=== PATIENT | female | born 1945 | race Caucasian/White ===

== ENCOUNTER 2017-10-30 14:31 | Observation (INO) | payer MEDICARE, BC ==
[~2017-10-30 14:31] MED LIST: ISOVUE-370 76%-LOCM 1 ML ONE
[2017-10-30 14:57] LABS: #Basophils 0.1 thou/uL (0.0-0.2); #Eosinphils 0.2 thou/uL (0.0-0.7); #Lymphocytes 1.9 thou/uL (1.20-3.40); #Monocytes 0.8 thou/uL (0.11-0.59); #Neutrophils 4.3 thou/uL (1.40-6.50); %Basophils 1.3 % (0.0-1.0); %Eosinophils 2.8 % (0.0-10.0); %Lymphocytes 26.2 % (21.0-51.0); %Monocytes 10.4 % (0.0-10.0); %Neutrophils 59.2 % (42.0-75.0); Hemoglobin 15.6 g/dL (12.0-16.0); Mean Corpuscular HGB CONC 33.1 g/dL (32.0-36.0); Mean Corpuscular Hemoglobin 30.8 pg (27.0-31.0); Mean Corpuscular Volume 93.1 fl (81.0-99.0); Mean Platelet Volume 8.3 fL (7.4-10.4); Platelet Count 226 thou/uL (130-400); RBC Distribution Width 12.4 % (11.5-14.5); Red Blood Cell (RBC) Count 5.05 mill/uL (4.20-5.40); White Blood Cell (WBC) Count 7.2 thou/uL (4.8-10.8)
--- NOTE | 2017-10-30 15:14 | RAD ---
CHEST 1 VIEW: Date: 10/30/17 COMPARISON: 11/28/16. HISTORY: Epigastric pain. FINDINGS: Redemonstration of a coronary stent. Atherosclerosis of aorta noted. Normal cardiac silhouette. Lungs and pleural spaces are clear. No pneumothorax or osseous abnormalities. IMPRESSION: 1. Atherosclerosis. 2. No acute cardiopulmonary process. POS: [facility]
[2017-10-30 15:20] LABS: ALT (SGPT) 28 U/L (8-55); AST (SGOT) 26 U/L (5-34); Albumin 4.8 g/dL (3.4-4.8); Alkaline Phosphatase 79 U/L (40-150); Anion Gap 18 mmol/L (10-20); BUN (Urea Nitrogen) 14 mg/dL (9.8-20.1); Bilirubin, Total 0.5 mg/dL (0.2-1.2); CK (CPK) 165 U/L (29-168); Calc. Creatinine Clearance 0 mL/min (70-130); Calcium 10.6 mg/dL (7.8-10.44); Carbon Dioxide 22 mmol/L (23-31); Chloride 107 mmol/L (98-107); Estimated GFR-MDRD 70; Globulin 3.1 g/dL (2.4-3.5); Glucose 139 mg/dL (83-110); Potassium 4.7 mmol/L (3.5-5.1); Protein, Total 7.9 g/dL (6.0-8.3); Sodium 142 mmol/L (136-145)
[2017-10-30 15:24] LABS: Troponin I Less than 0.010 ng/mL (< 0.028)
[2017-10-30] MEDS ORDERED: Nitroglycerin 2% Ointment 1 INCH/1 GM Packet ONE (16:09)
[2017-10-30] MEDS ORDERED: Labetalol HCl 100 MG/20 ML VIAL ONE (16:09)
[2017-10-30] MEDS ORDERED: Nitroglycerin 0.4 MG TAB (25 Tab Bottle) ONE (16:09)
--- NOTE | 2017-10-30 17:34 | CT ---
CTA CHEST WITH IV CONTRAST AND 3D POSTPROCESSING CTA ABDOMEN WITH IV CONTRAST AND 3D POSTPROCESSING 10/30/17 HISTORY: Epigastric pain, coronary artery disease, atrial fibrillation. Concern for aortic dissection. FINDINGS: There are vascular calcifications without evidence of aneurysmal dilatation of the thoracoabdominal a latoya. No intimal flap is seen in the thoracic aorta to suggest aortic dissection. There is an intimal flap noted in the visualized portions of the left common carotid artery consistent with dissection. This suggests stenosis at the origin of the renal artery with good flow without significant stenosis at the origins of the celiac axis, SMA, and left renal artery. There is good flow noted in the RUDY as well. The pulmonary artery arterial vasculature is also well opacified without filling defects to suggest p ulmonary embolism. No pleural or pericardial effusions are seen. The visualized lung barbosa are clear . Multiple calcified gallstones are present. There are cysts in the right kidney. Nonobstructing calcul i is seen in the right kidney. No free air or free fluid is seen in the abdomen. There are degenerati ve changes in the thoracolumbar spine. Postop changes are noted in the lower lumbar spine. A normal a ppearing appendix is present. Findings are discussed over the telephone with Dr. Socorro Tan at 4:23 p.m. IMPRESSION: 1. No evidence of aortic dissection. 2. 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 3. Cholelithiasis. 4. Nonobstructing right renal calculi. 5. Right renal cysts. POS: [facility]
[2017-10-30] MEDS ORDERED: Ondansetron ODT 4 MG TAB SL PRN (18:57)
[2017-10-30] MEDS ORDERED: Sodium Chloride 0.9% 1,000 ML IV SCH (18:57)
[2017-10-30] MEDS ORDERED: Ondansetron HCl/PF 4 MG/2 ML Vial IVP PRN (18:57)
[2017-10-30 18:58] LABS: Troponin I 0.011 ng/mL (< 0.028)
[2017-10-30 19:06] VITALS: BMI 34.8
[2017-10-30] MEDS ORDERED: Mag-Al 1200 mg/1200 mg/30 ML UDCUP PO PRN (20:24)
[2017-10-30] MEDS ORDERED: cloNIDine 0.1 MG TAB PO PRN (20:25)
[2017-10-30] MEDS ORDERED: Acetaminophen 325 MG TAB PO PRN (20:26)
[2017-10-30] MEDS ORDERED: Ondansetron ODT 4 MG TAB PO PRN (20:27)
[2017-10-30] MEDS ORDERED: Ondansetron HCl/PF 4 MG/2 ML Vial SLOW IVP PRN (20:27)
[2017-10-30] MEDS ORDERED: Atorvastatin Calcium 40 MG TAB PO SCH (21:00)
[2017-10-30] MEDS ORDERED: Docusate 100 MG CAP PO SCH (21:00)
[2017-10-30] MEDS: Apixaban 5 MG TAB PO SCH (21:01)
[2017-10-31 07:54] VITALS: BP 105/52
[2017-10-31 07:56] VITALS: TEMP 98.4
[2017-10-31] MEDS ORDERED: metFORMIN 500 MG TAB PO SCH (08:00)
[2017-10-31] MEDS ORDERED: Spironolactone 25 MG TAB PO SCH (08:00)
[2017-10-31] MEDS ORDERED: Alogliptin 25 MG TAB PO SCH (09:00)
[2017-10-31] MEDS ORDERED: Docusate 100 MG CAP PO SCH (09:00)
[2017-10-31] MEDS ORDERED: Amlodipine 5 MG TAB PO SCH (09:00)
[2017-10-31] MEDS ORDERED: Fish Oil 1,000 MG CAP PO SCH (09:00)
[2017-10-31] MEDS: Apixaban 5 MG TAB PO SCH (09:02)
--- NOTE | 2017-10-31 11:38 | HP ---
DATE OF ADMISSION: 10/30/2017 REASON FOR ADMISSION/CHIEF COMPLAINT: Chest pain. HISTORY OF PRESENT ILLNESS: This is a 72-year-old female, patient of Dr. Dutch Hess's, w ho came to the emergency room due to several days of relatively constant retrosternal burning-type pa in. She had tried Mylanta and Tums and had no relief. Stated the pain did not radiate. There is no nausea, there is no diaphoresis, and no shortness of breath. It was not made worse with exertion, w as not made worse or better with food or positioning. She had a cardiac catheterization done 1 year ago, which showed that her 3 stents were widely patent in her LAD with mild disease distally. Dr. Ligia khan sees her from Cardiology and he has an appointment already scheduled to see her later this month . Dr. Hess then saw her 2 weeks ago and started her on amlodipine 5 mg daily due to blood pressure issues. Since then she has noted slight edema to her ankles and feet. The pain in the ER was sligh tly improved. PAST MEDICAL HISTORY: Atherosclerotic coronary vascular disease, status post stent placements; hyper tension; hyperlipidemia; diabetes; degenerative joint disease; degenerative disk disease; spinal sten osis; and a history of paroxysmal atrial fibrillation, which was not helped by Multaq. PAST SURGICAL HISTORY: Stent placement, lumbar back surgery, left hip replacement, and bilateral tub al ligation. 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 CURRENT MEDICATIONS: She is on Eliquis 5 mg twice a day, aspirin 81 mg a day, Avapro 300 mg a day, a mlodipine 5 mg a day, Aldactone 25 mg a day, Lipitor 40 mg a day, Protonix 40 mg a day, metformin 100 0 mg twice a day, alogliptin 25 mg a day, and she takes fish oil and CoQ10 and Tums and Maalox as nee ded. FAMILY HISTORY: Father had lung cancer, diabetes, hypertension, and spinal stenosis issues. Mom had diabetes and cardiovascular disease. SOCIAL HISTORY: She is a retired nurse. She is a . No toxic habits. Lives at home alone. REVIEW OF SYSTEMS: Denies any fever or chills or constitutional symptoms. No headache or visual danelle nges, no troubles chewing or swallowing. No shortness of breath, no cough, no hemoptysis. Denies an y abdominal discomfort. No excess gas. Denies any changes to bowel habits, no hematochezia or melen a or bright red blood per rectum. Denies any changes to her regular genitourinary habits. No dysuri a, no hematuria. Denies any paresis or paresthesias. Denies any suicidal or homicidal ideations. D enies any auditory or visual hallucinations. PHYSICAL EXAMINATION: GENERAL: She is sitting up comfortable in the bed, alert and oriented x4, in no acute distress. VITAL SIGNS: Temperature is 98.4 with a pulse of 49, respirations 16, BP is 105/52, satting 95% on r oom air. HEENT EXAM: Shows normocephalic and atraumatic cranium. Pupils equal, round, reactive to light and accommodation. Extraocular movements are intact. Nonicteric sclerae are noted. NECK: Supple, no JVD, no bruits. HEART: Shows S1, S2, with no rubs, murmurs, or gallops. Regular rate and rhythm at this time. No c hest wall tenderness to palpation. LUNGS: Clear to auscultation bilaterally with no rales, rhonchi, or wheezes. ABDOMEN: Soft, nontender, nondistended. No hepatosplenomegaly. Bowel sounds are positive throughou t. GENITOURINARY: Exam is deferred. EXTREMITIES: Good palpable pulses in all 4 extremities. There is slight 1+ edema to bilateral feet and ankles. NEUROLOGIC: She is grossly intact. Cranial nerves II-XII are equal and symmetrical. Motor is 4/5 i n all 4 extremities. She is moving all 4 extremities. Sensory is without diminishment. Good sensat ion in all areas. LABORATORY AND X-RAY FINDINGS: Shows a white count normal at 7.2, H and H is 15.6 and 47 respectivel y, platelets of 226,000. Sodium 142, potassium 4.7, chloride 107, CO2 is 22, BUN is 14, creatinine 0 .8 with a glucose at 139. Her AST is 26 and ALT is 28, creatine kinase 165, CK-MB is 4.0, troponin f irst was undetectable and then 0.01 and then last one was 0.02. EKG showed no acute changes to past EKGs. No ST elevations or depressions. CT scan was done in the emergency room for dissection protoc ol, showed no dissection, showed a questionable intimal change to the left common carotid. ASSESSMENT AND PLAN: Hypertensive urgency with a known coronary artery disease with no acute coronar y symptoms. Patient is placed in the hospital overnight for observation.
--- NOTE | 2017-10-31 12:14 | DIS ---
DATE OF ADMISSION: 10/30/2017 DATE OF DISCHARGE: 10/31/2017 CONSULTATIONS: None. PROCEDURES: None. HOSPITAL COURSE: This is a 72-year-old female patient of Dr. Dutch Hess's who came in [facility] hypertensive urgency. She had some retrosternal pain for several days constantly that was not mad e worse or better by any of her interventions or whether be food, position, or medicine. Last night, patient was admitted and given a dose of Imdur. Her hypertension was elevated above into the upper 170s and was not necessarily improved with the interventions in the ER. Imdur was given and this mor day of discharge, her pressure within 2 hours of taking the medicine was down to 120 and this mo rning is 105/52. The patient is asymptomatic at this point with pressure being normalized. Her labs were essentially all negative with minimal changes in troponin, but her EKGs remained stable. Plan is to discharge to home to continue the Imdur as a daily medication. We will decrease the Norvasc to 2.5 due to the pedal edema despite her use of Avapro and we will have her follow up with Dr. Hess in this next week and also maintain that appointment that she has with her brake drum lathe operator, Dr. Yaneli levine this month.
--- NOTE | 2017-10-31 15:37 | EKG ---
Test Reason : Blood Pressure : / mmHG Vent. Rate : 068 BPM Atrial Rate : 068 BPM P-R Int : 156 ms QRS Dur : 070 ms QT Int : 394 ms P-R-T Axes : 062 -27 -27 degrees QTc Int : 418 ms Sinus rhythm with Premature atrial complexes in a pattern of bigeminy Inferior infarct , age undetermined Abnormal ECG Confirmed by SHIRLEY LEON, JANET Aquino ([id number]), editorial director JACINDA HAMEED ([id number]) on 10/31/2017 3:36:54 PM Referred By: Confirmed By:JANET WATSON MD
[2017-10-31] MEDS ORDERED: Metamucil PACK PO SCH (17:00)
[2017-10-31] MEDS ORDERED: Aspirin 81 mg Enteric Coated Tablet PO SCH (21:00)
== END 2017-10-31 11:33 | disposition home or self-care (01) ==
LOC: ERS 14:31 → 2SW 17:43
PROVIDERS: ADMIT Family Medicine; ATTEND Family Medicine
DX: I16.0 Hypertensive urgency (principal); R07.2 Precordial pain; I25.10 Atherosclerotic heart disease of native coronary artery without angina pectoris; I10 Essential (primary) hypertension; E78.5 Hyperlipidemia, unspecified; E11.9 Type 2 diabetes mellitus without complications; M19.90 Unspecified osteoarthritis, unspecified site; I48.0 Paroxysmal atrial fibrillation; L53.9 Erythematous condition, unspecified; Z79.01 Long term (current) use of anticoagulants; Z79.82 Long term (current) use of aspirin; Z79.84 Long term (current) use of oral hypoglycemic drugs; Z79.899 Other long term (current) drug therapy; Z88.2 Allergy status to sulfonamides; Z88.1 Allergy status to other antibiotic agents; Z88.8 Allergy status to other drugs, medicaments and biological substances; Z88.7 Allergy status to serum and vaccine; Z98.51 Tubal ligation status; Z96.642 Presence of left artificial hip joint; Z98.890 Other specified postprocedural states
CPT/HCPCS: 71045; 71275; 80053; 82550; 82553; 82962 ×2; 83880; 84484 ×2; 85025; 93005; 99285; G0378; 36415; 36416; A4216

== ENCOUNTER 2017-11-18 20:05 | Emergency (ER) | payer MEDICARE, BC ==
[2017-11-19 01:12] LABS: #Basophils 0.1 thou/uL (0.0-0.2); #Eosinphils 0.1 thou/uL (0.0-0.7); #Lymphocytes 2.1 thou/uL (1.20-3.40); #Monocytes 0.8 thou/uL (0.11-0.59); #Neutrophils 5.7 thou/uL (1.40-6.50); %Basophils 0.9 % (0.0-1.0); %Lymphocytes 23.9 % (21.0-51.0); %Monocytes 9.3 % (0.0-10.0); %Neutrophils 64.9 % (42.0-75.0); Hemoglobin 15.1 g/dL (12.0-16.0); Mean Corpuscular Hemoglobin 30.9 pg (27.0-31.0); Mean Corpuscular Volume 90.9 fl (81.0-99.0); Mean Platelet Volume 8.1 fL (7.4-10.4); Platelet Count 217 thou/uL (130-400); RBC Distribution Width 12.4 % (11.5-14.5); Red Blood Cell (RBC) Count 4.89 mill/uL (4.20-5.40); White Blood Cell (WBC) Count 8.7 thou/uL (4.8-10.8)
[2017-11-19 01:17] LABS: Bilirubin Negative (Negative); Blood, Urine Negative (Negative); Clarity CLEAR (Clear); Glucose, Urine (Dipstick) Negative (Negative); Leukocyte Trace (Negative); Nitrite Negative (Negative); Protein, Urine (Dipstick) Negative (Neg-Trace); Specific Gravity, Urine 1.015 (1.002-1.036)
[2017-11-19 01:20] LABS: Bacteria/HPF None Seen HPF (None Seen); Hyaline Casts/LPF 0-3 HYALINE CAST LPF (0-3 Hyaline); Pathc Cast-AUWi Flag 0.43 (0-2.49); RBC/HPF 0-3 HPF (0-3); Squamous Epithelial 0-3 HPF (0-3)
[2017-11-19] MEDS ORDERED: cloNIDine 0.1 MG TAB ONE (01:29)
[2017-11-19 01:37] LABS: ALT (SGPT) 29 U/L (8-55); AST (SGOT) 25 U/L (5-34); Albumin 4.8 g/dL (3.4-4.8); Alkaline Phosphatase 77 U/L (40-150); Anion Gap 13 mmol/L (10-20); BUN (Urea Nitrogen) 17 mg/dL (9.8-20.1); Bilirubin, Total 0.5 mg/dL (0.2-1.2); Calc. Creatinine Clearance 0 mL/min (70-130); Calcium 10.6 mg/dL (7.8-10.44); Carbon Dioxide 27 mmol/L (23-31); Chloride 103 mmol/L (98-107); Estimated GFR-MDRD 69; Globulin 2.9 g/dL (2.4-3.5); Glucose 168 mg/dL (83-110); Potassium 3.7 mmol/L (3.5-5.1); Protein, Total 7.7 g/dL (6.0-8.3); Sodium 139 mmol/L (136-145)
--- NOTE | 2017-11-19 08:10 | CT ---
PRELIMINARY REPORT/[facility]/EMERGENCY AFTER HOURS PROCEDURE: EXAM: CT Head Without Intravenous Contrast CLINICAL HISTORY: 72 years old, female; Injury or trauma; Fall; Initial encounter; Concussion / head injury; Consciousn ess not specified; Injury date: 11/19/2017; Injury details: 72 yo wf pmh a-fib S/P ablation and on chr onic anticoagulant. Presents following fall from standing during which she struck her head against th e wall and landed on her right side. Denies loc. Denies recurrent falls. Denies cp, SOB, numbness, or weakness. TECHNIQUE: Axial computed tomography images of the head/brain without intravenous contrast. All CT scans at this facility use one or more dose reduction techniques, viz.: automated exposure control; ma/kV adjustme nt per patient size (including targeted exams where dose is matched to indication; i.e. head); or ite rative reconstruction technique. COMPARISON: No relevant prior studies available. FINDINGS: Brain: Mild volume loss No hemorrhage. Mild white matter disease. No edema. Ventricles: Unremarkable. No ventriculomegaly. Bones/joints: Unremarkable. No acute fracture. Soft tissues: Unremarkable. Sinuses: Unremarkable as visualized. No acute sinusitis. Mastoid air cells: Unremarkable as visualized. No mastoid effusion. IMPRESSION: No intracranial hemorrhage.Please see discussion above. Thank you for allowing us to participate in the care of your patient. Dictated and Authenticated by: Raji Lees MD 11/19/2017 1:32 AM Central Time ([place] & [place]) FINAL REPORT EMERGENCY/AFTER HOURS EXAMINATION CT HEAD WITHOUT IV CONTRAST: 11/19/2017 HISTORY: Injury after fall. Patient with atrial fibrillation and on a chronic anticoagulant. IMPRESSION: 1. No acute intracranial abnormality is demonstrated. 2. Mild chronic small vessel ischemic changes, not progressed when compared to study on 11/28/2016. Findings are in agreement with the preliminary report by [facility]. POS: [facility]
--- NOTE | 2017-11-19 08:12 | RAD ---
AP AND OBLIQUE VIEWS RIGHT RIBS: HISTORY: Right rib trauma and pain. TECHNIQUE: AP and oblique views of the right ribs are obtained. FINDINGS: No definite evidence of right rib fractures, subluxations, or bony lesions seen. No evidence of hemo thorax or pneumothorax is seen. IMPRESSION: Unremarkable AP and oblique views of the right ribs. POS: [facility]
--- NOTE | 2017-11-19 08:16 | RAD ---
AP VIEW CHEST: 11/19/2017 HISTORY: Fall from standing. COMPARISON: 10/30/2017 FINDINGS: AP view chest demonstrates the lungs to be well aerated. No evidence of active intrathoracic disease is seen. No evidence of effusion, pneumonia, or pneumothorax is seen. IMPRESSION: Unremarkable AP view chest. POS: [facility]
--- NOTE | 2017-11-19 08:22 | CT ---
PRELIMINARY REPORT/[facility]/EMERGENCY AFTER HOURS PROCEDURE: EXAM: CT Cervical Spine Without Intravenous Contrast CLINICAL HISTORY: 72 years old, female; Injury or trauma; Fall; Initial encounter; Concussion /head injury; Injury date : 11/19/2017; Injury details: 72 yo wf pmh a-fib S/P ablation and on chronic anticoagulant. Presents following fall from standing during which she struck her head against the wall and landed on her righ t side. Denies loc. Denies recurrent falls. Denies cp, SOB, numbness, or weakness. TECHNIQUE: Axial computed tomography images of the cervical spine without intravenous contrast. All CT scans at this facility use one or more dose reduction techniques, viz.: automated exposure control; ma/kV adjustment per patient size (including targeted exams where dose is matched to indication; i.e. head) ; or iterative reconstruction technique. COMPARISON: No relevant prior studies available. FINDINGS: Vertebrae: Loss of vertebral body height, presumed degenerative No acute fracture. Discs/spinal canal/neural foramina: No acute findings. See level central canal and foraminal stenosis most pronounced at C4-C5 and C5-C6 Soft tissues: Unremarkable. Lung apices: Unremarkable as visualized. IMPRESSION: No definite acute cervical fracture Thank you for allowing us to participate in the care of your patient. Dictated and Authenticated by: Raji Lees MD 11/19/2017 1:57 AM Central Time ([place] & [place]) FINAL REPORT EMERGENCY AFTER HOURS NONCONTRAST CT CERVICAL SPINE: Date: 11/19/17 HISTORY: Injury after fall from standing position. Right rib pain. Patient on anticoagulation secondary to atr ial fibrillation. TECHNIQUE: Contiguous axial CT images are obtained through the cervical spine to the T2-3 level. Sagittal and co giancarlo reformatted images are provided. IMPRESSION: 1. Multilevel degenerative changes seen throughout the cervical spine with narrowing of the interver tebral disc spaces at all levels with associated posterior osteophyte formation and disc osteophyte c omplexes, which does encroach on the central spinal canal. Findings are greatest at the C4-5 and C5-6 levels where there is severe left-sided neural foraminal narrowing at these levels. There is also mo derate to severe left-sided neural foraminal narrowing at C6-7 level. 2. Prevertebral soft tissues are within normal limits. 3. Vascular calcifications in the carotid arteries. Findings are in agreement with the preliminary report by [facility]. POS: [facility]
== END 2017-11-19 02:55 | disposition home or self-care (01) ==
LOC: ERS 20:05
DX: S20.211A Contusion of right front wall of thorax, initial encounter (principal); I25.10 Atherosclerotic heart disease of native coronary artery without angina pectoris; I48.91 Unspecified atrial fibrillation; E11.9 Type 2 diabetes mellitus without complications; I10 Essential (primary) hypertension; I25.2 Old myocardial infarction; E78.5 Hyperlipidemia, unspecified; W19.XXXA Unspecified fall, initial encounter
CPT/HCPCS: 36415; 70450; 71045; 72125; 80053; 81003; 81015; 85025; 93005

== ENCOUNTER 2018-01-15 18:49 | Inpatient (IN) | payer MEDICARE, BC ==
[2018-01-15 19:23] LABS: #Eosinphils 0.1 thou/uL (0.0-0.7); #Lymphocytes 0.6 thou/uL (1.20-3.40); #Monocytes 0.4 thou/uL (0.11-0.59); #Neutrophils 5.9 thou/uL (1.40-6.50); %Basophils 0.6 % (0.0-1.0); %Eosinophils 1.7 % (0.0-10.0); %Lymphocytes 8.9 % (21.0-51.0); %Monocytes 5.9 % (0.0-10.0); Hemoglobin 15.7 g/dL (12.0-16.0); Mean Corpuscular HGB CONC 34.4 g/dL (32.0-36.0); Mean Corpuscular Hemoglobin 31.6 pg (27.0-31.0); Mean Corpuscular Volume 91.9 fl (81.0-99.0); Mean Platelet Volume 7.9 fL (7.4-10.4); Platelet Count 190 thou/uL (130-400); RBC Distribution Width 12.8 % (11.5-14.5); Red Blood Cell (RBC) Count 4.96 mill/uL (4.20-5.40); White Blood Cell (WBC) Count 7.1 thou/uL (4.8-10.8)
[2018-01-15 19:40] LABS: ALT (SGPT) 27 U/L (8-55); AST (SGOT) 24 U/L (5-34); Albumin 4.6 g/dL (3.4-4.8); Alkaline Phosphatase 69 U/L (40-150); Anion Gap 11 mmol/L (10-20); BUN (Urea Nitrogen) 21 mg/dL (9.8-20.1); Bilirubin, Total 0.9 mg/dL (0.2-1.2); Calc. Creatinine Clearance 0 mL/min (70-130); Carbon Dioxide 28 mmol/L (23-31); Chloride 102 mmol/L (98-107); Estimated GFR-MDRD 67; Globulin 2.9 g/dL (2.4-3.5); Glucose 139 mg/dL (83-110); Lipase 381 U/L (8-78); Magnesium 1.9 mg/dL (1.6-2.6); Potassium 3.9 mmol/L (3.5-5.1); Protein, Total 7.5 g/dL (6.0-8.3); Sodium 137 mmol/L (136-145)
[2018-01-15 19:44] LABS: CKMB 4.5 ng/mL (0-6.6); Troponin I Less than 0.010 ng/mL (< 0.028)
[2018-01-15 20:07] LABS: INR-International Normal Ratio 1.1; Prothrombin Time 14.1 SEC (12.0-14.7)
[2018-01-15 20:31] LABS: Bilirubin Negative (Negative); Blood, Urine Negative (Negative); Clarity CLEAR (Clear); Glucose, Urine (Dipstick) Negative (Negative); Leukocyte Trace (Negative); Nitrite Negative (Negative); Protein, Urine (Dipstick) Negative (Neg-Trace); Specific Gravity, Urine 1.011 (1.002-1.036); Urobilinogen 0.2 mg/dL (0.2-1.0); pH, Urine 7.5 (5.0-9.0)
[2018-01-15 20:33] LABS: Bacteria/HPF None Seen HPF (None Seen); Hyaline Casts/LPF 0-3 HYALINE CAST LPF (0-3 Hyaline); Pathc Cast-AUWi Flag 0.14 (0-2.49); RBC/HPF 0-3 HPF (0-3); Squamous Epithelial 0-3 HPF (0-3); WBC/HPF 0-3 HPF (0-3)
--- NOTE | 2018-01-15 20:36 | RAD ---
CHEST ONE VIEW: 01/15/18 HISTORY: Chest pain. COMPARISON: 11/19/17 study. Heart size is within normal limits. Coronary stent is noted. There are atherosclerotic changes of the aorta. The lungs are clear of any infiltrative process. IMPRESSION: No active intrathoracic disease. POS: [facility]
--- NOTE | 2018-01-15 21:31 | CT ---
CT BRAIN 01/15/18 HISTORY: Altered mental status. Noncontrast enhanced CT images of the brain is obtained. Comparison made to previous exam from 11/19/17. 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 No evidence of intracranial masses, hemorrhages, strokes or contusions seen. Ventricles are of normal size. IMPRESSION: Unremarkable CT brain. POS: [facility]
[2018-01-15 23:55] VITALS: BMI 32.4
--- NOTE | 2018-01-16 10:30 | ULT ---
CAROTID ULTRASOUND: Date: 01/16/18 HISTORY: TIA. FINDINGS: Real-time color Doppler evaluation of the right and left carotid systems was performed. On the right side, there is some minimal plaque formation at the origin of the internal carotid arter y and external carotid artery. On the left side, there are findings that are suspicious for an intima l dissection of the common carotid artery which extends for several centimeters and would be better a ssessed with CT angio of neck. On the right side, peak systolic velocities of the common carotid were 47 cm/second. Internal carotid velocities were 36 cm/second and external carotid velocities were 71 cm/second. On the left side, peak systolic velocities of the common carotid were 68 cm/second. Internal carotid velocities were 76 cm/second and external carotid velocities were 54 cm/second. Vertebral flow was antegrade bilaterally. IMPRESSION: 1. No evidence of hemodynamically significant stenosis of either internal carotid artery. 2. Findings are suspicious for intimal dissection of the left common carotid artery. This would be b shara investigated with CT angio of the neck. These findings were telephoned to patient's nurse, Jasmin, who will relay it to the referring physic luisito. CODE CR. POS: [facility]
[2018-01-16] MEDS ORDERED: Potassium Chloride 8 MEQ TAB PO PRN (11:24)
[2018-01-16] MEDS ORDERED: ISOVUE-370 76%-LOCM 1 ML ONE (12:14)
--- NOTE | 2018-01-16 12:51 | HP ---
CHIEF COMPLAINT: Dizziness with nausea. HISTORY OF PRESENT ILLNESS: This is a 72-year-old female patient of Dr. Dutch Hess's wit h known coronary artery disease, who was last admitted in 10/2017 for hypertensive urgency. She was at home, walking outside using her rolling walker when she suddenly became very dizzy and nauseated. She sat down on her seat of the walker. She had not been exerting herself. She started this to fee l terrible and went inside and sat down and after at least 30 minutes to almost an hour, she said she started to feel better. She did not notice any changes in her vision or headache. She did not lose consciousness. So, she did have some strange feelings, could not necessarily describe them. She di d not describe them as a pain. She did not describe them as needles or electrical nature, just a str iraida feeling. She said after the initial nausea and dizziness subsided a little bit of just come and go unpredictably. PAST MEDICAL HISTORY: Positive for atherosclerotic coronary vascular disease. She has 3 stents in h er LAD, hypertension, hyperlipidemia, diabetes, degenerative disk disease, degenerative joint disease , spinal stenosis, and history of paroxysmal atrial fibrillation. PAST SURGICAL HISTORY: Stent placements in coronary arteries, lumbar disk surgery. She had a left t otal hip replacement, bilateral tubal ligation remotely. ALLERGIES: SULFA, LAMISIL, also intolerant to NIACIN. MEDICATIONS: Eliquis 5 mg b.i.d., aspirin 80 mg a day, metformin 1000 mg b.i.d., Januvia 100 mg luis y, Norvasc 2.5 mg daily, Avapro 300 mg daily, Aldactone 25 mg daily, Imdur ER 30 mg daily, Lipitor 40 mg daily, and Prevacid 30 mg daily, along with some nonmedicinal supplements, Krill oil, and probiot ic. FAMILY HISTORY: Father had lung cancer, diabetes, hypertension, spinal stenosis. Mother had coronar y artery disease and diabetes. SOCIAL HISTORY: She is a retired nurse. She is a , has children that live locally. She has no toxic habits. Lives at home alone. REVIEW OF SYSTEMS: As per HPI. She denies any fever or chills, diarrhea or constipation. She had n ausea, was not necessarily associated with head movement or eye movement. She denies any headache or visual changes. No ophthalmoplegia, denies any trouble chewing or swallowing. Denies any chest colin n or shortness of breath or cough. Denies any emesis. Denies any abdominal pain, denies any changes in bowel or bladder habits. Denies any dysuria or hematuria. No uncoordinated muscle movements, no paresis or paresthesias. Denies any suicidal or homicidal ideations. No auditory or visual halluci nations. PHYSICAL EXAMINATION: GENERAL: She is currently sitting up and comfortable in bed. She is afebrile. VITAL SIGNS: Temperature 98.3, pulse 60, respiration is 12, BP is 151/83, and sat 96% on room air. HEENT: Normocephalic and atraumatic cranium. She does wear glasses for myopia. Her pupils are equa l, round, and reactive to light and accommodation. Extraocular movements are intact. Mucous membran es are moist. NECK: Supple, no JVD, no bruits, no lymphadenopathy, no thyromegaly. HEART: S1 and S2, with no rubs, murmurs, or gallops. LUNGS: Clear to auscultation bilaterally with no rales, rhonchi, or wheezes. ABDOMEN: Soft, nontender, nondistended, no palpable masses, no hepatosplenomegaly. She is a slightl y obese. EXTREMITIES: Show good palpable pulses x4. No cyanosis, clubbing, or edema. NEUROLOGIC: She is alert and oriented x4. Cranial nerves II-XII are equal and symmetrical. There i s no motor or sensory deficits noted. No coordination impairment noted. No tremor. LABORATORY AND X-RAY FINDINGS: White count normal at 7.1, H&H 15 and 45 respectively with 190,000 [address] atelets. Chemistry shows sodium 137, potassium 3.9, chloride 102, bicarbonate 28, BUN is 21, creatin ine 0.83, glucose of 139. Her troponin is undetectable. Beta natriuretic peptide is 44. Ultrasound Doppler done per the TIA protocol showed a left internal carotid intimal flap so she will undergo fu rther evaluation there. ASSESSMENT: Transient ischemic attack possibly versus significant vertigo with the finding on the Do ppler. She will get a dissection protocol, CTA of the carotid system. Of note, she has had an intim al flap in the past noted, so this could be chronic. We will need to see whether her symptom is havi ng change and also we have, this has already been discussed with Dr. Johnson, CV Surgery.
--- NOTE | 2018-01-16 14:04 | CT ---
CT ANGIOGRAM OF THE NECK WITH CONTRAST: Date: 01/16/18 Time: 1132 hours HISTORY: Left carotid artery dissection suspected on carotid Doppler ultrasound today. Dr. Franco discussed the findings by telephone with neurologist, Dr. Ariane Simmons, at 1148 hours on . TECHNIQUE: Following IV contrast bolus injection, arterial bolus chasing technique scan was performed from aorto pulmonic window to lower orbit level. Coronal and sagittal 3D MIP reconstructions. The intracranial contents were not included on the scan; the CT angiogram of the head was ordered lat e, and the surgical scrub technologist did not see that particular order when he or she performed the scans. FINDINGS: There is displaced intimal flap of the left common carotid artery beginning approximately 0.4 cm dist al to its origin, propagating superiorly to the distal common carotid artery, up to a distance of maggi roximately 1.5 cm proximal to the origin of the left internal carotid artery. The false lumen is loca chago posterior to the true lumen. Located a distance of approximately 1.5 - 2 cm distal to its origin, there is a small focal filling defect in the false lumen consistent with clot. The common carotid ar odilon dissection was present on a previous CT angiogram of the chest and abdomen for aortic dissection protocol, and was mentioned in that report. The triangular filling defect suggestive of clot was als o present on that study. There is atherosclerotic calcification of the proximal left internal carotid artery. Dissection does not propagate into the left internal carotid artery. There is no high grade stenosis of the bilateral internal carotid arteries, up to the level of the cavernous carotids. Righ t vertebral artery is slightly dominant No high grade stenosis or dissection identified involving galdino ateral cervical and intracranial portions of the vertebral arteries, or of the basilar artery. Basila r tip and posterior cerebral arteries are not included on the scan. No high grade stenosis of the bra chiocephalic, right subclavian, or left subclavian arteries. IMPRESSION: 1. Dissection of the left common carotid artery. 2. Possible small focal thrombus in the proximal portion of the false lumen. 3. The left common carotid artery dissection was identified on CT angiogram of the aorta on 10/30/17 . 4. The dissection does not propagate into the internal carotid artery. POS: [facility]
--- NOTE | 2018-01-16 15:02 | CON ---
DATE OF CONSULTATION: 01/16/2018 CHIEF COMPLAINT: Dizziness. HISTORY OF PRESENT ILLNESS: The patient reports to me that she has had some issues with her aortic d issection and other medical problems. She has known coronary artery disease. She was admitted [facility]. She was walking with a walker and her daughter was helping her with gardening. She became very dizzy and nauseous, and she sat down and she did not feel well and after about an h our, she started to feel better, but her daughter brought her in because she was not herself, and the re was no history of any speech problems or loss of consciousness, seizures or weakness. PAST MEDICAL HISTORY: She has coronary artery disease with 3 stents in the left anterior descending artery. She also has a history of hypertension, diabetes, back problems with degenerative arthritis, spinal stenosis, and paroxysmal atrial fibrillation. PAST SURGICAL HISTORY: Stent placement, coronary artery disease, lumbar disk surgery. She also has known aortic dissection, left hip replacement and bilateral tubal ligation. ALLERGIES: She is allergic to SULFA, LAMISIL, and NIACIN. HOME MEDICATIONS: Include Eliquis and aspirin for stroke prophylaxis. She is also on metformin, Nor vasc, and other agents. FAMILY HISTORY: The patient reports both her parents had hypertension, diabetes, and heart disease a nd father also had stroke. 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 Lives alone at home. REVIEW OF SYSTEMS: Pulmonary: Normal. Cardiac: History of stents. Gastrointestinal: Nausea and feeling of vomiting. Neurological: Positive now for headache. She did have dizziness that lasted a pproximately an hour. Endocrine: Positive for diabetes. Dermatologic: Normal. LABORATORY DATA: So far, white count 7.1, hemoglobin 15.7, hematocrit 45.6, platelets 190. Chemistr y: Sodium 137, potassium 3.9, chloride 102, bicarbonate 28, BUN 21, creatinine 0.83. Serum lipase 3 81 and her reports so far, I have spoken to the radiologist about her CT angiography of the neck. At this time, the neck angio is normal. There is no vertebral artery issues, but she does have a stabl e common carotid artery dissection. CT of the head is negative. At this time, we could not get the CT angio of the head due to excessive contrast that might have to be used since she has already compl eted the contrast scan. PHYSICAL EXAMINATION: VITAL SIGNS: Blood pressure 152/87, pulse is 73, temperature 98.8, respiratory rate 14. GENERAL APPEARANCE: Well-built, well-nourished lady, who appears comfortable. CHEST: Clear vesicular breathing. CARDIOVASCULAR: S1, S2 heard, no murmurs. Carotids are clear. ABDOMEN: Soft, nontender, no organomegaly noted. MOTOR: Bulk is normal. Tone is normal. Strength is 5/5 in upper and lower extremities. Muscle sierra ups tested are iliopsoas, hamstrings, quadriceps, ankle dorsiflexion, plantar flexion, deltoid, bicep s, triceps, wrist extension/flexion, and finger extension and flexion. Deep tendon reflexes were abs ent throughout. SENSORY: Decreased sensation to vibration touch, temperature and proprioception in both lower extrem ities. Normal sensation in upper extremities. CEREBELLAR: Normal finger to nose, heel to farias. GAIT: She is limping and she has orthopedic component to her gait. ASSESSMENT AND PLAN: The patient is a 72-year-old lady with multiple vascular risk factors including hypertension, diabetes, coronary artery disease, preexisting aortic dissection and dissection of her common carotid artery, which apparently is stable and unchanged from her most recent workup in October . She comes in with history of dizziness, which lasted approximately for an hour and I am not sure w hat her elevation of lipase is from. Her physical examination shows slightly obese lady with normal neurological examination. Except for her gait where she has orthopedic component of gait and is limp ing. Her current diagnosis is most consistent with transient ischemic attack. RECOMMENDATIONS: For now, she can continue her present medications. I requested a CT angio of the h ead to make sure we complete looking at her vasculature and this can be done tomorrow since she alrea dy received IV contrast today. If that study is negative and normal, she can go home. She would lik e to go home and she can follow up with her neurologist, Dr. Lee.
[2018-01-16] MEDS ORDERED: Metamucil PACK PO SCH (17:00)
[2018-01-16] MEDS: metFORMIN 500 MG TAB PO SCH (17:15)
[2018-01-16] MEDS: Apixaban 5 MG TAB PO SCH (20:28)
[2018-01-16] MEDS ORDERED: Docusate 100 MG CAP PO SCH (21:00)
[2018-01-16] MEDS ORDERED: Atorvastatin Calcium 40 MG TAB PO SCH (21:00)
--- NOTE | 2018-01-16 23:08 | CON ---
DATE OF CONSULTATION: 01/16/2018 HISTORY OF PRESENT ILLNESS: Ms. Kenney is a 72-year-old woman who was in the hospital in October w ith hypertension. She was found at that time on CT angiogram to have a common carotid artery dissect ion. CT angiogram was performed of her aorta and did not extend up higher than the origin of her com mon carotid where the common carotid dissection was seen. She has history of atrial fibrillation, patterson s been managed on 81 mg of aspirin and Eliquis. She was brought to the hospital today by her daughter when she became dizzy and nauseous. She sat do wn, did not feel well and after an hour, her daughter brought her in because she said she was not her self. She had no loss of function of either arm or leg. She had no facial drooping. She had no spe ech difficulty. She had no visual disturbance. PAST MEDICAL HISTORY: 1. Coronary artery disease/status post stenting. 2. Hypertension. 3. Diabetes. 4. Chronic left common carotid artery dissection. 5. Spinal stenosis. 6. Paroxysmal atrial fibrillation. PAST SURGICAL HISTORY: 1. Lumbar disk surgery. 2. Left hip replacement. 3. BTL. ALLERGIES: SULFA, LAMISIL, and NIACIN. HOME MEDICATIONS: Noted. 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 PHYSICAL EXAMINATION: VITAL SIGNS: Heart rate is 70, blood pressure is 150/87. NECK: Supple. She has no bruits. CHEST: Clear bilaterally. HEART: Rhythm is regular. ABDOMEN: Soft and nontender. NEUROLOGIC: Deferred to Dr. Simmons. CT angiogram of her carotids has been performed, which shows a dissection beginning at the origin of the left common carotid artery and extending up to the bulb. Internal carotid artery is unaffected. There is no flow limiting component. ASSESSMENT AND PLAN: Chronic left common carotid artery dissection - medical management should be co ntinued. Her aspirin has been increased to 325 mg every day, and she will continue her Eliquis as pr eviously ordered for atrial fibrillation.
[2018-01-17 05:05] VITALS: TEMP 99.3
[2018-01-17] MEDS ORDERED: Spironolactone 25 MG TAB PO SCH (08:00)
[2018-01-17] MEDS: Apixaban 5 MG TAB PO SCH (08:13)
[2018-01-17] MEDS: metFORMIN 500 MG TAB PO SCH (08:13)
[2018-01-17 08:25] VITALS: BP 146/86
[2018-01-17] MEDS ORDERED: EPA PO SCH (09:00)
[2018-01-17] MEDS ORDERED: AST PO SCH (09:00)
[2018-01-17] MEDS ORDERED: Docusate 100 MG CAP PO SCH (09:00)
[2018-01-17] MEDS ORDERED: Aspirin 325 mg Enteric Coated Tablet PO SCH (09:00)
[2018-01-17] MEDS ORDERED: PHOSPHO PO SCH (09:00)
[2018-01-17] MEDS ORDERED: Amlodipine 5 MG TAB PO SCH (09:00)
[2018-01-17] MEDS ORDERED: DHA PO SCH (09:00)
[2018-01-17] MEDS ORDERED: [UNRECOGNIZED DRUG - OTHER] PO SCH (09:00)
[2018-01-17] MEDS ORDERED: KRILL PO SCH (09:00)
[2018-01-17] MEDS ORDERED: Alogliptin 25 MG TAB PO SCH (09:00)
--- NOTE | 2018-01-17 15:58 | DIS ---
DATE OF ADMISSION: 01/15/2018 DATE OF DISCHARGE: 01/17/2018 ADMITTING DIAGNOSIS: Transient ischemic attack. DISCHARGE DIAGNOSES: Transient ischemic attack versus labyrinthitis and vertigo. CONSULTATIONS: Neurology and CV Surgery. HOSPITAL COURSE: The patient is a 72-year-old female, patient of Dr. Dutch Hess, who cam e in the hospital from home after having a prolonged episode of acute onset of vertigo with nausea. Throughout her hospital course evaluation, she was found to have a flap persisted in the left interna l carotid based on carotid Dopplers. She then had a CT angio of the neck which showed it has a chron ic intimal flap and Dr. Ford Johnson from CV Surgery stated due to her functionality and the nature of this particular flap that there is nothing to do surgically for this, just medicine treatment, so she will continue with her current medicine of the Eliquis, but will increase her aspirin from 81 to 325. Neurology wanted to also do a further CT angio of the brain with the amount of contrast that justin beaver has received in the last couple days and her lack of symptoms and all of her reason for coming to [facility] subsided and remained gone. We will put that off for now and go ahead and discharge her home, so she will be discharged to home to continue on her meds of Eliquis 5 mg twice a day. Aspirin will increase from 81 to 325, she will continue the metformin 1000 twice a day and the Januvia 100 m g daily. She will continue 25 mg of Aldactone daily, amlodipine 2.5 mg daily, Avapro 300 mg daily, I mdur ER 30 mg daily, Lipitor 40 mg daily, and Prevacid 30 mg daily. She also has stool softeners and potassium gluconate 595 mg daily as needed. She will follow up with Dr. Dutch Hess. She has an appointment already set for the 4th. Follow up with CV Surgery and Neurology is not necessary at this time.
== END 2018-01-17 10:45 | disposition home or self-care (01) | DRG 69 ==
LOC: ERS 18:49 → 2SE 21:33
PROVIDERS: ADMIT Family Medicine; ATTEND Family Medicine
DX: G45.9 Transient cerebral ischemic attack, unspecified (principal); E87.0 Hyperosmolality and hypernatremia; I25.10 Atherosclerotic heart disease of native coronary artery without angina pectoris; Z95.5 Presence of coronary angioplasty implant and graft; E78.5 Hyperlipidemia, unspecified; E11.9 Type 2 diabetes mellitus without complications; I10 Essential (primary) hypertension; I48.0 Paroxysmal atrial fibrillation; Z96.642 Presence of left artificial hip joint; Z88.2 Allergy status to sulfonamides; Z88.8 Allergy status to other drugs, medicaments and biological substances; Z79.899 Other long term (current) drug therapy; Z79.82 Long term (current) use of aspirin; Z79.84 Long term (current) use of oral hypoglycemic drugs; R42 Dizziness and giddiness; H83.09 Labyrinthitis, unspecified ear; Z79.01 Long term (current) use of anticoagulants
CPT/HCPCS: 36416; 70450; 70498; 71045; 80053; 81003; 81015; 82553; 83690; 83735; 83880; 84484; 85025; 85610; 85730; 93005; 93306; 93880; A4216

== ENCOUNTER 2019-06-08 14:08 | Observation (INO) | payer MEDICARE, BC ==
[2019-06-08] MEDS ORDERED: Ondansetron PF 4 MG/2 ML Vial ONE ×2 (14:47→16:25)
[2019-06-08 15:11] LABS: #Basophils 0.1 thou/uL (0.0-0.2); #Eosinphils 0.1 thou/uL (0.0-0.7); #Lymphocytes 1.8 thou/uL (1.20-3.40); #Monocytes 1.4 thou/uL (0.11-0.59); #Neutrophils 11.1 thou/uL (1.40-6.50); %Basophils 0.5 % (0.0-1.0); %Eosinophils 0.8 % (0.0-10.0); %Lymphocytes 12.1 % (21.0-51.0); %Monocytes 9.9 % (0.0-10.0); %Neutrophils 76.7 % (42.0-75.0); Hemoglobin 13.6 g/dL (12.0-16.0); Mean Corpuscular HGB CONC 33.2 g/dL (32.0-36.0); Mean Corpuscular Hemoglobin 29.7 pg (27.0-31.0); Mean Corpuscular Volume 89.5 fL (78.0-98.0); Mean Platelet Volume 8.6 fL (7.4-10.4); Platelet Count 170 thou/uL (130-400); RBC Distribution Width 13.5 % (11.5-14.5); Red Blood Cell (RBC) Count 4.57 mill/uL (4.20-5.40); White Blood Cell (WBC) Count 14.4 thou/uL (4.8-10.8)
--- NOTE | 2019-06-08 15:18 | RAD ---
XR Chest 1 View Portable HISTORY: Chest pain COMPARISON: 01/15/2018 FINDINGS: The heart size is normal. The lungs are well expanded without focal areas of consolidation, pneumothorax or pleural effusions. IMPRESSION: No radiographic evidence of acute cardiopulmonary process.
[2019-06-08 15:31] LABS: ALT (SGPT) 20 U/L (8-55); AST (SGOT) 17 U/L (5-34); Albumin 4.1 g/dL (3.4-4.8); Alkaline Phosphatase 74 U/L (40-110); Anion Gap 14 mmol/L (10-20); BUN (Urea Nitrogen) 16 mg/dL (9.8-20.1); Bilirubin, Total 0.5 mg/dL (0.2-1.2); Calc. Creatinine Clearance 0 mL/min (70-130); Carbon Dioxide 22 mmol/L (23-31); Chloride 108 mmol/L (98-107); Estimated GFR-MDRD 59; Globulin 2.4 g/dL (2.4-3.5); Glucose 158 mg/dL (83-110); Lipase 21 U/L (8-78); Potassium 3.8 mmol/L (3.5-5.1); Protein, Total 6.5 g/dL (6.0-8.3); Sodium 140 mmol/L (136-145)
[2019-06-08] MEDS ORDERED: Morphine 4 MG/ML VIAL ONE (16:24)
[2019-06-08] MEDS ORDERED: Nitroglycerin 0.4 MG TAB (25 Tab Bottle) PO PRN (16:43)
[2019-06-08] MEDS ORDERED: Dextrose 50% Abboject 50 ML SYRINGE SLOW IVP PRN (16:56)
[2019-06-08] MEDS ORDERED: Dextrose 5% in Water 1,000 ML IV PRN (16:56)
[2019-06-08] MEDS ORDERED: HumaLOG 300 UNITS/3 ML VIAL SC PRN (16:56)
[2019-06-08] MEDS ORDERED: Morphine 2 MG/ML SYRINGE SLOW IVP PRN (17:06)
--- NOTE | 2019-06-08 17:21 | HP ---
PRIMARY CARE PROVIDER: Dutch Hess MD CHIEF COMPLAINT: Chest pain. HISTORY OF PRESENT ILLNESS: Ms. Kenney is a pleasant 73-year-old lady, who was seen at [facility] on June 08, 2019. She has a history of coronary artery disease status post 3 stents in her LAD. She reports that today around 1 p.m., she bent down to fish bait picker something and when she stood up straight, she started having chest discomfort. She describes it as retrosternal and in the epigastric region, dull, radiating to the back, not accompanied by lightheadedness, but accompanied by shortness of breath. She reports nausea. She reports vomiting twice. She denies diaphoresis. She denies any fevers or chills. She presented to the emergency room because of ongoing chest discomfort. She reports that it was 10/10 at its worst. REVIEW OF SYSTEMS: All systems were reviewed and found to be negative, except for the pertinent positives mentioned above. PAST MEDICAL HISTORY: Coronary artery disease status post PCI with stents, hypertension, dyslipidemia, diabetes mellitus, degenerative disk disease, degenerative joint disease, spinal stenosis, paroxysmal atrial fibrillation, and carotid artery dissection. PAST SURGICAL HISTORY: PCI to coronaries with stents, lumbar disk surgery, left total hip replacement, bilateral tubal ligation. ALLERGIES: SULFA, LAMISIL, NIACIN. CURRENT MEDICATIONS: These need to be clarified, but appeared to include, 1. Glyburide. 2. Vytorin. 3. Lansoprazole. 4. Metoprolol. 5. Clonidine. 6. Fish oil. 7. Aspirin. 8. Multivitamins. 9. Stool softener. FAMILY HISTORY: Lung cancer, diabetes, hypertension, and spinal stenosis in her father. Coronary artery disease and diabetes in her mother. SOCIAL HISTORY: The patient denies tobacco use, alcohol use, or recreational drug use. PHYSICAL EXAMINATION: GENERAL: On examination, Ms. Kenney is awake and alert, not in acute distress. VITAL SIGNS: Blood pressure 124/48, pulse 47, respiratory rate 17, and oxygen saturation 99% on room air. She is afebrile. EYES: No scleral icterus. No conjunctival pallor. ENT: Moist mucosal membranes. No oropharyngeal erythema or exudates. NECK: Supple, nontender. Trachea is midline. RESPIRATORY: Accessory muscles of breathing are not active. CHEST: Chest wall movements are symmetric bilaterally. LUNGS: Clear to auscultation without wheeze, rhonchi, or crepitations. CARDIOVASCULAR: S1 and S2 are heard, regular. Peripheral pulses palpable. No carotid bruit. No pericardial rub. ABDOMEN: Soft, nontender. Bowel sounds are heard. No hepatomegaly, no splenomegaly. NEUROLOGIC: Cranial nerves 2 through 12 are intact. MUSCULOSKELETAL: Power is 5/5 in all 4 extremities. SKIN: No rashes or subcutaneous nodules. LYMPHATIC: No cervical lymphadenopathy. PSYCHIATRIC: Normal mood, normal affect. The patient is oriented to person, place, and time. LABORATORY DATA AND IMAGING STUDIES: Ms. Kenney's labs and investigations were reviewed. I reviewed her electrocardiogram, which shows sinus bradycardia, no ST changes to suggest an acute coronary syndrome. I also reviewed her chest x-ray, which does not show any pulmonary infiltrates. She has leukocytosis with 14,400 white cells, of which 76% are neutrophils, normal hemoglobin, normal platelet count. Normal sodium, normal potassium, decreased carbon dioxide of 22, normal creatinine, and normal LFTs. First troponin I is normal at 0.018. ASSESSMENT AND PLAN: Ms. Kenney is a pleasant 73-year-old lady, who was seen at [facility] on June 08, 2019. Her problem list includes: 1. Chest pain: Ms. Kenney is presenting with retrosternal chest discomfort. Given her history of coronary artery disease, her presentation is concerning for anginal pain. She will be admitted to the hospital on motor route carrier. We will consult Cardiology Service for opinion and help with management. We will continue her on aspirin. We will recheck troponins. Further management depending on the outcome of the tests and how she does clinically. 2. Diabetes mellitus type 2: We will start Accu-Chek's and insulin sliding scale. 3. Dyslipidemia: Continue Vytorin. 4. Hypertension: Resume home medications once doses are clarified, monitor vital signs and titrate antihypertensives as needed. 5. History of paroxysmal atrial fibrillation: The patient does not appear to be on anticoagulants at this time. This will need to be clarified. Many thanks for allowing me to participate in your patient's care. Please feel free to contact me with any questions or concerns. LEVEL OF RISK: High. LEVEL OF COMPLEXITY: High. ADDENDUM: Ms. Kenney reports that she is still on anticoagulation for atrial fibrillation, but is unable to recall the name of the medication or the dose. This will need to be resumed once she is able to recall or once it is clarified through her primary care provider or pharmacy. Also, blood pressures were checked in both arms and there is no significant difference in blood pressure between the two sites. Job ID: [id number]
[2019-06-08] MEDS ORDERED: Ketorolac Tromethamine 30 MG/ML VIAL IVP PRN (17:35)
[2019-06-08] MEDS ORDERED: Ketorolac Tromethamine 30 MG/ML VIAL IVP SCH (17:45)
[2019-06-08 21:49] LABS: Troponin I Less than 0.010 ng/mL (< 0.028)
[2019-06-08 22:25] VITALS: BMI 37.0
[2019-06-09] MEDS ORDERED: Ketorolac Tromethamine 30 MG/ML VIAL IVP SCH (06:00)
[2019-06-09] MEDS ORDERED: Non-Formulary Item 1 EACH (Calcium Carb, Citrate/Vit D3 [Calcium + D3 Er Tablet] 1 TABLET PO PRN (08:30)
[2019-06-09] MEDS ORDERED: POTASSIUM GLUCONATE 595 MG PO PRN (08:30)
[2019-06-09] MEDS ORDERED: Pioglitazone HCl 15 MG TAB PO SCH (09:00)
[2019-06-09] MEDS ORDERED: Fish Oil 1,000 MG CAP PO SCH (09:00)
[2019-06-09] MEDS ORDERED: Aspirin 325 mg Enteric Coated Tablet PO SCH (09:00)
[2019-06-09] MEDS ORDERED: Docusate 100 MG CAP PO SCH (09:00)
[2019-06-09] MEDS ORDERED: [UNRECOGNIZED DRUG - OTHER] PO SCH (09:00)
[2019-06-09] MEDS ORDERED: Spironolactone 25 MG TAB PO SCH (09:00)
[2019-06-09] MEDS ORDERED: Isosorbide Mononitrate (ER) 30 MG TAB PO SCH (09:00)
[2019-06-09] MEDS ORDERED: Amlodipine 5 MG TAB PO SCH (09:00)
[2019-06-09] MEDS ORDERED: KRILL OIL PO SCH (09:00)
[2019-06-09] MEDS ORDERED: Calcium Carbonate + Vit D 1 TAB PO PRN (09:04)
[2019-06-09 09:26] LABS: #Lymphocytes 1.9 thou/uL (1.20-3.40); #Monocytes 1.4 thou/uL (0.11-0.59); %Basophils 0.3 % (0.0-1.0); %Eosinophils 0.4 % (0.0-10.0); %Lymphocytes 18.4 % (21.0-51.0); %Monocytes 13.7 % (0.0-10.0); %Neutrophils 67.3 % (42.0-75.0); Hemoglobin 12.9 g/dL (12.0-16.0); Mean Corpuscular HGB CONC 33.8 g/dL (32.0-36.0); Mean Corpuscular Hemoglobin 29.3 pg (27.0-31.0); Mean Corpuscular Volume 86.7 fL (78.0-98.0); Mean Platelet Volume 9.2 fL (7.4-10.4); Platelet Count 137 thou/uL (130-400); RBC Distribution Width 13.6 % (11.5-14.5); Red Blood Cell (RBC) Count 4.38 mill/uL (4.20-5.40); White Blood Cell (WBC) Count 10.3 thou/uL (4.8-10.8)
[2019-06-09 09:46] LABS: Anion Gap 13 mmol/L (10-20); BUN (Urea Nitrogen) 27 mg/dL (9.8-20.1); Calc. Creatinine Clearance 78 mL/min (70-130); Calcium 9.2 mg/dL (7.8-10.44); Carbon Dioxide 23 mmol/L (23-31); Chloride 106 mmol/L (98-107); Estimated GFR-MDRD 55; Glucose 156 mg/dL (83-110); Potassium 4.1 mmol/L (3.5-5.1); Sodium 138 mmol/L (136-145)
[2019-06-09 12:17] VITALS: BP 144/63; TEMP 99.1
[2019-06-09] MEDS ORDERED: Regadenoson 0.4 MG/5 ML SYRINGE ONE (14:34)
[2019-06-09] MEDS ORDERED: Lorazepam 2 MG/ML VIAL SLOW IVP PRN (14:46)
--- NOTE | 2019-06-09 15:33 | CON ---
DATE OF CONSULTATION: HISTORY OF PRESENT ILLNESS: Ms Kenney is a 73-year-old lady, who presented to the emergency department with a few hours' history of pressure-like chest pain in her epigastric and sternal area, that radiated around to her right and left side. She experienced this right after she bent down to pick something up. When she stood up, she had the pain, so severe that it causes her to sit down. She was diaphoretic and short of breath at that time. She reports that sitting down did not resolve the pain. She continued to have the pain and it was worsening, so she called EMS at that point. She was given nitroglycerin, aspirin, and morphine, unresponsive for chest pain. She reports none of these things assisted with the chest pain. At the time of my exam, she reports that her chest pain had gone down to 3 and she noticed the most improvement after getting a shot of Toradol earlier that day. Additionally, she reports that her shortness of breath has resolved with her initial episode. She additionally reports nausea and vomiting x2. She has a past medical history significant for paroxysmal AFib, for which she takes Eliquis for and significant coronary artery disease with history of 3 stents placed in the LAD in 2017. Her recent echocardiogram revealed an ejection fraction of 55% to 60%, that was in 2018. She denies any syncope, palpitations, worsening edema, worsening shortness of breath, or other associated symptoms prior to this episode. REVIEW OF SYSTEMS: All systems were reviewed and found to be negative except for the pertinent positives mentioned above. PAST MEDICAL HISTORY: Significant for; 1. Coronary artery disease as mentioned above. 2. Hypertension. 3. Hyperlipidemia. 4. Diabetes mellitus, type 2. 5. Degenerative disk disease. SURGICAL HISTORY: 1. Stenting as mentioned above. 2. Lumbar spine surgery. 3. Total hip replacement. 4. Tubal ligation. MEDICATIONS: 1. Atorvastatin 40 mg. 2. Avapro 300 mg. 3. Eliquis 5 mg p.o. b.i.d. 4. Lansoprazole 30 mg p.o. daily. 5. Metformin 500 mg p.o. t.i.d. with meals. 6. Potassium 595 mg p.o. daily. 7. MegaRed krill oil. 8. Spironolactone 25 mg p.o. daily. 9. Imdur 30 mg p.o. daily. 10. Calcium carbonate one tablet p.o. daily. 11. Pioglitazone 7.5 mg p.o. daily. 12. Fish oil 1000 mg p.o. daily. 13. Norvasc 2.5 mg p.o. daily. 14. Aspirin 81 mg p.o. daily. PHYSICAL EXAMINATION: GENERAL: No acute distress. VITAL SIGNS: On my examination, blood pressure of 144/63, pulse 52, respirations 16, saturating 93% on room air with a temperature of 99.1 degrees Fahrenheit. HEENT: Normocephalic and atraumatic. NECK: Supple with bilateral systolic ejection murmur radiation. HEART: S1 and S2 present with a loud systolic ejection murmur. PMI nondisplaced. Regular rate and rhythm. RESPIRATORY: Clear to auscultation bilaterally. No rhonchi, rales, or wheezes. ABDOMEN: Nontender to palpation. NEUROLOGIC: Cranial nerves grossly intact. No focal deficits. MUSCULOSKELETAL: No gross abnormalities noted. SKIN: No rashes or lesions. LABORATORY DATA AND IMAGING STUDIES: Chest x-ray reveals no pulmonary vascular congestion and/or pulmonary effusions. EKG revealed sinus bradycardia, which the patient reports to be present throughout her life. Troponins negative x3. ASSESSMENT AND PLAN: 1. Chest pain, most likely musculoskeletal in nature. However, with her history of coronary artery disease, it would be prudent to obtain a nuclear medicine stress. This has been ordered. Further management and evaluation pending these results. 2. Sinus bradycardia. This appears to be chronic in nature as the patient reports she has had this, all are like her daughter has the same asymptomatic at this time. 3. Diabetes mellitus, type 2. Continue home medicine management per primary team. 4. Dyslipidemia. Continue home medicines. 5. Hypertension, appears well controlled. Continue home medicines. 6. History of paroxysmal atrial fibrillation. Regular rate and rhythm during this hospitalization and continue home Eliquis. Thank you for your consult and allowing us to participate in your patient's care. Job ID: [id number]
--- NOTE | 2019-06-09 17:11 | NM ---
EXAM: NM Cardiac Stress W EF WF PROVIDED CLINICAL HISTORY: Chest pain. COMPARISON: None FINDINGS: This examination was performed as a stress only pharmacologic myocardial perfusion study. No significant defects are seen within the left ventricular wall on the stress images. Gated images d emonstrate normal ventricular wall motion and wall thickening. Calculated left ventricular ejection 72%. IMPRESSION: 1. Normal myocardial perfusion study without evidence of ischemia. 2. Normal LVEF.
--- NOTE | 2019-06-09 17:36 | CON ---
DATE OF CONSULTATION: REASON FOR CONSULTATION: Chest pain. PRIMARY SATURATION EQUIPMENT OPERATOR: Petar Groves MD HISTORY OF PRESENT ILLNESS: Ms. Kenney is a 73-year-old woman who recently presented with chest pain. She states it was severe. It was worse with movement to the left and right. No midline exacerbating or precipitating factors present. She did have associated diaphoresis. She states it was different than previous chest pain. She does have a history of stent placement x3 to the LAD. Please see full H and P for details by Dr. Ish Martinez. PHYSICAL EXAMINATION: GENERAL: Patient is a pleasant female who is in no acute distress. The patient appears their stated age. VITAL SIGNS: Blood pressure 144/63, pulse 52, temperature 99.1. NEUROLOGIC: The patient is alert and oriented x3 with no focal neurologic deficits. HEENT: Sclerae without icterus. Mouth has moist mucous membranes with normal pallor. NECK: No JVD. Carotid upstroke brisk. No bruits bilaterally. LUNGS: Clear to auscultation with unlabored respirations. BACK: No scoliosis or kyphosis. CARDIAC: Regular rate and rhythm with normal S1 and S2. No S3 or S4 noted. No significant rubs, murmurs, thrills, or gallops noted throughout the precordium. PMI is not displaced. There is no parasternal heave. ABDOMEN: Soft, nontender, nondistended. No peritoneal signs present. No hepatosplenomegaly. No abnormal striae. EXTREMITIES: 2+ femoral and 2+ dorsalis pedis pulses. No cyanosis, clubbing, or edema. SKIN: No gross abnormalities. PERTINENT LABORATORY DATA: Hemoglobin 12.9, creatinine 0.98. Stress/rest myocardial perfusion study, no significant ischemia with LVEF 72%. IMPRESSION: 1. Atypical chest pain. 2. Coronary artery disease. 3. Status post bypass surgery. RECOMMENDATIONS: Ms. Kenney's symptoms seemed to be musculoskeletal in origin. Her recent stress study was negative for ischemia. We would treat a noncardiac cause. Plan is to follow up with Dr. Petar Groves following several weeks. Otherwise, I do not have any further recommendations. Job ID: [id number]
[2019-06-09] MEDS ORDERED: Apixaban 5 MG TAB PO SCH (21:00)
[2019-06-09] MEDS ORDERED: Atorvastatin Calcium 40 MG TAB PO SCH (21:00)
--- NOTE | 2019-06-10 01:27 | DIS ---
DATE OF ADMISSION: 06/08/2019 DATE OF DISCHARGE: 06/09/2019 PRIMARY CARE PROVIDER: Dutch Hess MD DISCHARGE DIAGNOSES: 1. Chest pain. 2. Chest pain most likely secondary to musculoskeletal etiology. CONDITION OF PATIENT ON THE DAY OF DISCHARGE: Stable. I assessed Ms. Kenney on the day of discharge. She reports that her chest pain has improved with Toradol. Vital signs are stable. S1 and S2 are heard, regular. Lungs are clear to auscultation bilaterally. DISCHARGE MEDICATIONS: 1. Amlodipine 2.5 mg daily. 2. Aspirin 81 mg daily. 3. Docusate 100 mg 2 times a day. 4. Fish oil 1000 mg daily. 5. Gilbert-3 oil one capsule daily. 6. Lansoprazole 30 mg daily. 7. Metformin 500 mg 3 times a day. 8. Actos 7.5 mg daily. 9. Spironolactone 25 mg daily. 10. Apixaban 5 mg 2 times a day. 11. Lipitor 40 mg at bedtime. 12. Avapro 300 mg daily. 13. Imdur 30 mg daily. 14. Calcium plus vitamin D3 one tablet daily as needed. 15. Potassium 595 mg daily as needed. 16. Toradol 10 mg every 8 hours as needed, prescription for 10 tablets sent to the Pharmacy. CONSULTATIONS DURING THIS HOSPITALIZATION: Cardiology, Dr. Falcon. FOLLOWUP APPOINTMENTS: The patient is advised to follow up with primary care provider in 3 days time. HOSPITAL COURSE: Ms. Kenney is a pleasant 73-year-old lady, who was admitted to [facility] on June 08, 2019, for chest pain. Please refer to my history and physical note dated June 08, 2019, for further details. She was seen by Cardiology Service. She underwent nuclear stress test, which was normal without evidence of ischemia. Left ventricular ejection fraction was 72%. Cardiology Service felt that her chest pain was secondary to musculoskeletal etiology. Her chest pain improved with Toradol. She is being discharged home with Toradol. She has been advised to follow up with primary care provider. On the day of discharge, she has normal electrolytes, blood urea nitrogen mildly elevated at 27, normal creatinine, normal calcium, normal white count, normal hemoglobin and normal platelet count. Many thanks for allowing me to participate in your patient's care. Please feel free to contact me with any questions or concerns. DISCHARGE DESTINATION: Home. Job ID: [id number]
[2019-06-10] MEDS ORDERED: metFORMIN 500 MG TAB PO SCH (08:00)
[2019-06-10] MEDS ORDERED: Aspirin 325 MG TAB PO SCH (09:00)
--- NOTE | 2019-06-11 23:23 | EKG ---
Test Reason : CP Blood Pressure : / mmHG Vent. Rate : 041 BPM Atrial Rate : 041 BPM P-R Int : 150 ms QRS Dur : 080 ms QT Int : 472 ms P-R-T Axes : 066 -11 019 degrees QTc Int : 389 ms Marked sinus bradycardia Nonspecific ST and T wave abnormality Abnormal ECG Confirmed by BRAEDEN GARCIA DO ([id number]), copy editor CRISTI PAZ ([id number]) on 06/11/2019 11:23:15 PM Referred By: Confirmed By:BRAEDEN GARCIA DO
--- NOTE | 2019-06-11 23:23 | EKG ---
Test Reason : CP Blood Pressure : / mmHG Vent. Rate : 045 BPM Atrial Rate : 045 BPM P-R Int : 154 ms QRS Dur : 076 ms QT Int : 486 ms P-R-T Axes : 085 -16 -14 degrees QTc Int : 420 ms Sinus bradycardia Nonspecific ST and T wave abnormality Abnormal ECG Confirmed by BRAEDEN GARCIA DO ([id number]), proposal editor CRISTI PAZ ([id number]) on 06/11/2019 11:23:10 PM Referred By: Confirmed By:BRAEDEN GARCIA DO
== END 2019-06-09 18:44 | disposition home or self-care (01) ==
LOC: ERS 14:08 → 2SW 16:13
PROVIDERS: ADMIT Internal Medicine; ATTEND Internal Medicine
DX: R07.2 Precordial pain (principal); I25.10 Atherosclerotic heart disease of native coronary artery without angina pectoris; I10 Essential (primary) hypertension; E78.5 Hyperlipidemia, unspecified; E11.9 Type 2 diabetes mellitus without complications; M19.90 Unspecified osteoarthritis, unspecified site; M48.00 Spinal stenosis, site unspecified; I48.0 Paroxysmal atrial fibrillation; Z79.01 Long term (current) use of anticoagulants; Z79.82 Long term (current) use of aspirin; Z79.84 Long term (current) use of oral hypoglycemic drugs; Z79.899 Other long term (current) drug therapy; Z88.2 Allergy status to sulfonamides; Z88.7 Allergy status to serum and vaccine; Z88.8 Allergy status to other drugs, medicaments and biological substances; Z95.5 Presence of coronary angioplasty implant and graft; Z95.1 Presence of aortocoronary bypass graft; Z96.642 Presence of left artificial hip joint; Z98.890 Other specified postprocedural states
CPT/HCPCS: 71045; 78452; 80048; 80053; 82962 ×2; 83690; 84484 ×2; 85025 ×2; 93005; 93017; 94760; 96374; 96375; 96376; 99285; A9500; 36415; 36416; G0378; J1885; J2060; J2270; J2405; J2785

== ENCOUNTER 2019-06-12 09:42 | Emergency (ER) | payer MEDICARE, BC ==
[2019-06-12] MEDS ORDERED: Ondansetron PF 4 MG/2 ML Vial ONE (10:33)
[2019-06-12] MEDS ORDERED: traMADol HCl 50 MG TAB ONE (10:33)
[2019-06-12] MEDS ORDERED: Pantoprazole 40 MG VIAL ONE (10:33)
[2019-06-12] MEDS ORDERED: Sodium Chloride 0.9% 100 ML ONE (10:33)
[2019-06-12 10:44] LABS: ALT (SGPT) 16 U/L (8-55); AST (SGOT) 15 U/L (5-34); Albumin 3.9 g/dL (3.4-4.8); Alkaline Phosphatase 77 U/L (40-110); Anion Gap 14 mmol/L (10-20); BUN (Urea Nitrogen) 18 mg/dL (9.8-20.1); Bilirubin, Total 1.1 mg/dL (0.2-1.2); CK (CPK) 87 U/L (29-168); Calc. Creatinine Clearance 0 mL/min (70-130); Calcium 9.3 mg/dL (7.8-10.44); Carbon Dioxide 25 mmol/L (23-31); Chloride 100 mmol/L (98-107); Estimated GFR-MDRD 71; Globulin 2.6 g/dL (2.4-3.5); Glucose 161 mg/dL (83-110); Lipase 11 U/L (8-78); Potassium 3.8 mmol/L (3.5-5.1); Protein, Total 6.5 g/dL (6.0-8.3); Sodium 135 mmol/L (136-145)
[2019-06-12 10:49] LABS: Bilirubin Negative (Negative); Blood, Urine Negative (Negative); Clarity Clear (Clear); Glucose, Urine (Dipstick) Normal (Negative); Leukocyte Negative Leu/uL (Negative); Nitrite Negative (Negative); Protein, Urine (Dipstick) Negative (Neg-Trace); Urobilinogen Normal mg/dL (Less than 2)
[2019-06-12 10:51] LABS: Band 7 % (5-11); Eosinophils 2 % (0-10); Hemoglobin 12.7 g/dL (12.0-16.0); Lymphocytes 25 % (21-51); MDiff Complete? YES; Mean Corpuscular HGB CONC 34.7 g/dL (32.0-36.0); Mean Corpuscular Hemoglobin 29.8 pg (27.0-31.0); Mean Platelet Volume 8.5 fL (7.4-10.4); Monocytes 10 % (0-10); Neutrophil 56 % (42-75); Platelet Count 140 thou/uL (130-400); RBC Distribution Width 13.5 % (11.5-14.5); Red Blood Cell (RBC) Count 4.25 mill/uL (4.20-5.40); White Blood Cell (WBC) Count 9.3 thou/uL (4.8-10.8)
--- NOTE | 2019-06-12 11:38 | ULT ---
Sonogram right upper quadrant HISTORY: Postprandial right upper quadrant pain. FINDINGS: Small shadowing stones within the dependent portion of the gallbladder lumen. No gallbladde r wall thickening or pericholecystic fluid. Common duct is 0.4 cm. Liver unremarkable without focal mass or intrahepatic biliary dilatation. No free fluid. Right renal cyst incidentally noted. IMPRESSION: Cholelithiasis. No evidence of acute biliary obstruction.
[2019-06-12] MEDS ORDERED: Nitroglycerin 50 MG/250 ML BOT 250 ML ONE (12:36)
[2019-06-12] MEDS ORDERED: Esmolol 2,500 MG/250 ML 0 ML ONE ×2 (12:44→12:47)
[2019-06-12] MEDS ORDERED: Esmolol 2,500 MG/250 ML 250 ML ONE (12:48)
[2019-06-12] MEDS ORDERED: Esmolol 2,500 MG/250 ML 250 ML IVPB SCH (13:00)
--- NOTE | 2019-06-12 13:57 | CT ---
CTA CHEST WITH IV CONTRAST AND 3D POST PROCESSING: HISTORY: Back pain, abdominal pain, chest pain. FINDINGS: There is extensive intramural hematoma involving the ascending, arch, descending, and visualized abdo moises portions of the aorta. There is active extravasation noted in the intramural hematoma of the de scending thoracic aorta. A tiny pericardial effusion and small bilateral pleural effusions are seen with adjacent atelectatic changes. No pneumothoraces are identified. No filling defects are noted in the pulmonary arterial vas culature to suggest pulmonary embolism. There are degenerative changes in the spine. Upper abdominal tomograms demonstrate calcified gallstones and a right renal cyst. IMPRESSION: Clemons type A acute aortic syndrome. The findings were discussed over the telephone with ER physician, Dr. Gino Melton, at 12:26 p.m. MOHINI INGRAM POS: BYRON
== END 2019-06-12 13:47 | disposition short-term general hospital (02) ==
LOC: ERS 09:42
DX: I71.01 Dissection of thoracic aorta (principal); E11.9 Type 2 diabetes mellitus without complications; E78.5 Hyperlipidemia, unspecified; I10 Essential (primary) hypertension; I25.2 Old myocardial infarction; Z79.899 Other long term (current) drug therapy
CPT/HCPCS: 36415; 51702; 71275; 76705; 80053; 81003; 82550; 83690; 84484; 85025; 93005; 96361; 96365; 96367; 96375; A4353; C9113; J2405; J3490; J7070

== ENCOUNTER 2019-07-11 13:08 | Inpatient (IN) | payer MEDICARE, BC ==
[~2019-07-11 13:08] MED LIST changes: -ISOVUE-370 76%-LOCM 1 ML ONE; +Iopamidol-370 76% 500 ML 1 ML ONE
[2019-07-11 13:45] LABS: Hemoglobin 12.6 g/dL (12.0-16.0); Mean Corpuscular HGB CONC 32.7 g/dL (32.0-36.0); Mean Corpuscular Hemoglobin 28.8 pg (27.0-31.0); Mean Corpuscular Volume 87.9 fL (78.0-98.0); Mean Platelet Volume 8.6 fL (7.4-10.4); Platelet Count 201 thou/uL (130-400); RBC Distribution Width 13.6 % (11.5-14.5); White Blood Cell (WBC) Count 17.5 thou/uL (4.8-10.8)
[2019-07-11 14:00] LABS: ALT (SGPT) 21 U/L (8-55); AST (SGOT) 24 U/L (5-34); Albumin 3.4 g/dL (3.4-4.8); Alkaline Phosphatase 143 U/L (40-110); Anion Gap 17 mmol/L (10-20); BUN (Urea Nitrogen) 39 mg/dL (9.8-20.1); Bilirubin, Total 0.6 mg/dL (0.2-1.2); Calc. Creatinine Clearance 0 mL/min (70-130); Calcium 9.3 mg/dL (7.8-10.44); Carbon Dioxide 18 mmol/L (23-31); Chloride 95 mmol/L (98-107); Estimated GFR-MDRD 38; Globulin 3.5 g/dL (2.4-3.5); Glucose 173 mg/dL (83-110); Potassium 3.8 mmol/L (3.5-5.1); Protein, Total 6.9 g/dL (6.0-8.3); Sodium 126 mmol/L (136-145)
[2019-07-11 14:27] LABS: Band 20 % (5-11); Lymphocytes 5 % (21-51); MDiff Complete? YES; Monocytes 5 % (0-10); Neutrophil 69 % (42-75); Platelet Morphology Comment Appears Adequate; Polychromasia SLIGHT = 2-3 cells (100X) (0-2/hpf); Reactive Lymphocytes 1 % (0-10)
--- NOTE | 2019-07-11 14:50 | RAD ---
RADIOGRAPH CHEST 1 VIEW: DATE: 07/11/2019 HISTORY: 73 year old female with Gorge type A aortic dissection. COMPARISON: 06/08/2019 FINDINGS: There is no airspace density, pulmonary edema, or pneumothorax. The lateral costophrenic angles are n ot effaced. There is a new left subclavian dual lead transvenous permanent pacemaker. There is a new metallic stent in the ascending aorta. There is ectasia and tortuosity of descending thoracic aor ta. IMPRESSION: 1. No acute pulmonary findings. 2. Interval placement of pacemaker. 3. Interval placement of endograft stent in ascending aorta.
[2019-07-11] MEDS ORDERED: Ondansetron PF 4 MG/2 ML Vial ONE (14:59)
--- NOTE | 2019-07-11 16:58 | CT ---
CT of the abdomen and pelvis: 07/11/2019 COMPARISON: None HISTORY: Upper abdominal pain TECHNIQUE: Axial CT imaging at 5 mm intervals from lung bases through pubic symphysis with intravenou s contrast. Coronal reformatted imaging obtained. FINDINGS: Vascular stent material is seen in the region of the ascending aorta, incompletely evaluate d on this examination. This is treating a previously noted dissection identified on 06/12/2019 CT angiogram chest. A partially visualized dissection of the descending thoracic aorta is noted, less co nspicuous than on the prior examination as well. The imaged lung bases appear unremarkable. Coronary arterial calcification is present. Transvenous pa cing device noted. No free intraperitoneal air is seen. Small calcified stones are noted within the gallbladder. The liver, spleen, pancreas, and adrenal glands demonstrate no acute findings. There is a small slidi ng-type hiatal hernia present. The left kidney is unremarkable. There is a cyst in the upper pole of the right kidney measuring 5.2 cm in AP dimension. There are numerous right-sided intrarenal calculi including stones within the mid pole and lower pole of the right kidney measuring up to approximately 6 mm. There is mild nonspecific right-sided perinephric stranding. No discrete hydronephrosis is noted on e ither side. No discrete obstructing stone is seen along the course of the right ureter. There is a hip arthroplasty on the left. Lack of oral contrast media limits assessment of the bowel. No evidence for bowel inflammatory change or obstruction. The appendix appears unremarkable. There is multifocal atherosclerotic calcification of the abdominal aorta and its branches. No lymphad enopathy is appreciated within the abdomen/pelvis. There are multilevel postoperative and degenerative changes noted within the lumbar spine. No worriso me lytic or blastic bone lesion. No acute osseous abnormality is noted. There is disc space narrowing with degenerative endplate change and vacuum disc formation at multiple levels within the l ower thoracic spine and upper lumbar spine. There is a small fat-containing umbilical hernia. IMPRESSION: Nonspecific right-sided perinephric stranding. This may be on the basis of inflammatory c hange, including pyelonephritis. Stranding associated with a recently passed renal stone is a possibility. Clinical correlation is essential. Cholelithiasis. No evidence for bowel obstruction.
[2019-07-11] MEDS ORDERED: cefTRIAXone\\ROCEPHIN 2 GM VIAL ONE (17:40)
[2019-07-11 17:42] LABS: Bacteria/HPF 4+ HPF (None Seen); Bilirubin Negative (Negative); Blood, Urine 2+ (Negative); Clarity Turbid (Clear); Glucose, Urine (Dipstick) Normal (Negative); Leukocyte 500 Leu/uL (Negative); Nitrite Negative (Negative); Protein, Urine (Dipstick) 70 mg/dL (Neg-Trace); Squamous Epithelial 0-3 HPF (0-3); Urobilinogen Normal mg/dL (Less than 2); WBC/HPF Greater than 50 HPF (0-3)
[2019-07-11] MEDS ORDERED: Gentamicin Sulfate 360 MG in Sodium Chloride 0.9% 100 ML IVPB ONE (17:45)
[2019-07-11] MEDS ORDERED: Vancomycin HCl 1.25 GM in Sodium Chloride 0.9% 250 ML 250 ML IVPB ONE (18:00)
[2019-07-11] MEDS ORDERED: Sodium Chloride 0.9% 1,000 ML IV SCH (20:13)
[2019-07-11] MEDS ORDERED: Ondansetron ODT 4 MG TAB SL PRN (20:13)
[2019-07-11] MEDS ORDERED: Acetaminophen 325 MG TAB PO PRN ×2 (20:13→21:51)
[2019-07-11] MEDS ORDERED: Ondansetron PF 4 MG/2 ML Vial IVP PRN ×2 (20:13→21:51)
[2019-07-11 21:38] VITALS: BMI 34.4
[2019-07-11] MEDS ORDERED: Ondansetron ODT 4 MG TAB PO PRN (21:51)
[2019-07-11] MEDS ORDERED: Bisacodyl 10 MG SUPP PR PRN (21:51)
[2019-07-11] MEDS ORDERED: Calcium Carbonate 500 MG ChewTAB PO PRN (21:51)
[2019-07-11] MEDS ORDERED: Senokot S 8.6-50 MG TAB PO PRN (21:51)
[2019-07-11] MEDS ORDERED: Apixaban 5 MG TAB PO SCH ×2 (22:00→22:30)
[2019-07-11] MEDS: Sodium Chloride 0.9% 1,000 ML IV SCH (22:08)
[2019-07-11] MEDS: Meropenem 1 GM in Sodium Chloride 0.9% 100 ML IVPB SCH (22:29)
--- NOTE | 2019-07-11 22:55 | HP ---
CHIEF COMPLAINT: Nausea, vomiting with fever. HISTORY OF PRESENT ILLNESS: Patient is a 73-year-old female with coronary artery disease, hypertension, hyperlipidemia, and diabetes mellitus type 2, presented to the emergency room with the above complaints. Over the last 3 to 4 days, patient developed gradual worsening nausea and vomiting along with abdominal discomfort. She was unable to keep any food down. She felt generally weak and fatigued. The vomitus contained food which she had eaten. The abdominal pain was on and off without any aggravating or relieving factor. It was mild dull ache like. She had a normal bowel movement three days ago. She also felt feverish, however, did not record her temperature. She has also lost her appetite. She is not sure whether she lost any weight. No melena or hematochezia reported. In the emergency room, her workup was consistent with pyelonephritis. Her temperature at this time is 101 with pulse rate of 102, respirations 18, blood pressure of 147/80 with O2 saturation 95% on room air. She received IV vancomycin, gentamicin, and ceftriaxone along with Zofran and IV fluids in the emergency room. PAST MEDICAL HISTORY: 1. Coronary artery disease. 2. Diabetes mellitus, type 2. 3. Hypertension. 4. Hyperlipidemia. 5. Paroxysmal atrial fibrillation. 6. Spinal stenosis, followed by Dr. Elizabeth. 7. History of vagotonia. Patient needs scopolamine patch prior to surgeries. 8. Patient had aortic dissection with hematoma on the 12 June 2019, requiring transfer to [facility]. Patient underwent stent placement. She is unable to provide further details. 9. History of recent TIA and atrial fibrillation after the aortic aneurysm repair at [facility]. PAST SURGICAL HISTORY: 1. Cardiac catheterization. 2. Back surgery. 3. Left hip replacement. 4. Tubal ligation. 5. Colonoscopy with polyp resection. 6. Pacemaker placement on June 28, 2019. ALLERGIES: PATIENT IS ALLERGIC TO SULFA, CARVEDILOL, LYRICA, NIACIN, AND NORVASC. SOCIAL HISTORY: Patient currently lives at home with her daughter. She denies any history of smoking. She is . No alcohol or drug use. She is full code, makes her own decision with the help of her daughter. She is retired from [employer]. FAMILY HISTORY: Father of lung cancer, diabetes, and hypertension. He also had heart disease. Mother of diabetes and heart disease. CURRENT HOME MEDICATIONS: According to Dr. Hess's office record, 1. Eliquis 5 mg twice a day. 2. Metformin 500 mg one tablet in the morning and two in the evening. 3. Amlodipine 10 mg daily. 4. Lansoprazole 30 mg daily. 5. Metoprolol tartrate 100 mg twice a day. 6. Aspirin 81 mg daily. 7. Hydrochlorothiazide 25 mg daily. 8. Lisinopril 20 mg daily. 9. Benham-3 daily. 10. Calcium with vitamin D daily. 11. Lipitor 40 mg daily. 12. Actos 15 mg daily. 13. Coenzyme Q10 daily. 14. Isosorbide mononitrate 30 mg daily. REVIEW OF SYSTEMS: All other review of systems was reviewed and was found negative. PHYSICAL EXAMINATION: VITAL SIGNS: As discussed above. GENERAL: A 73-year-old female, ill-appearing. Denies significant pain at this time. HEENT: Head, atraumatic and normocephalic. Sclerae anicteric. Dry mucous membranes. No oral lesion. NECK: Supple. No JVD appreciated. No carotid bruit. LUNGS: Showed diminished air entry at bilateral bases. No wheezing, rales, or rhonchi. HEART: S1 and S2 present. Tachycardic. No rubs or gallops. ABDOMEN: Soft. There is mild generalized tenderness around the periumbilical region. No rebound or guarding. No costovertebral angle tenderness. EXTREMITIES: No edema or calf tenderness. NEUROLOGIC: Grossly nonfocal. Moves all 4 extremities. PSYCHIATRY: Alert, awake, and oriented x3. SKIN: Warm and dry. LYMPH NODE: No palpable lymph nodes in the neck. PERIPHERAL VASCULAR: Radial pulses palpable bilaterally. MUSCULOSKELETAL: No joint swelling or tenderness. LABORATORY FINDINGS: WBC 17.5 with hemoglobin 12.6, hematocrit 38.7, and platelet count of 201 with 20% bandemia. Chemistry showed sodium 126; potassium 3.8; chloride 95; bicarb 18; creatinine 1.35, baseline creatinine is 0.86. Lactic acid 3.0. Troponin negative. Lipase was 24. Urinalysis showed greater than 50 wbc's with 4+ bacteria. Influenza testing was negative. CT of the abdomen by my review showed inflammatory changes in the right kidney. It also showed cholelithiasis. IMPRESSION: 1. Severe sepsis secondary to right-sided pyelonephritis. 2. Recent aortic aneurysm repair. 3. Recent pacemaker placement. 4. Hyponatremia. 5. Acute kidney injury on chronic kidney disease, stage 3. 6. Metabolic acidosis/lactic acidosis. 7. Diabetes mellitus, type 2. 8. Hypertension. 9. Coronary artery disease. 10. Obesity with a BMI of 34.5. 11. Degenerative joint disease. 12. Paroxysmal atrial fibrillation. It is unclear whether the patient is on anticoagulation. PLAN: Patient will be monitored on the medical floor. Home medications will be verified. Anticoagulation will be restarted once confirmed given a history of aortic dissection. We will recheck labs in a.m. Continue IV hydration. We will check serum osmolality. We will consult Infectious Disease. We will monitor labs on a daily basis. Recheck lactic acid in a.m. Consult Physical Therapy and Occupational Therapy. Plan of care was discussed with the patient in detail. She stated understanding. Job ID: [id number] MTDD
[2019-07-12] MEDS: Meropenem 1 GM in Sodium Chloride 0.9% 100 ML IVPB SCH (05:36)
[2019-07-12] MEDS: Sodium Chloride 0.9% 1,000 ML IV SCH ×3 (05:37→19:47)
[2019-07-12] MEDS ORDERED: MEROPENEM 1 GM/50 ML 1 GM in Premix Bag 1 BAG IVPB SCH (06:00)
[2019-07-12] MEDS ORDERED: Meropenem 1 GM in Sodium Chloride 0.9% 100 ML IVPB SCH (06:00)
[2019-07-12 06:27] LABS: Lactic Acid 1.3 mmol/L (0.5-2.2)
[2019-07-12 06:28] LABS: ALT (SGPT) 20 U/L (8-55); AST (SGOT) 22 U/L (5-34); Albumin 2.6 g/dL (3.4-4.8); Alkaline Phosphatase 132 U/L (40-110); Anion Gap 12 mmol/L (10-20); BUN (Urea Nitrogen) 41 mg/dL (9.8-20.1); Bilirubin, Total 0.4 mg/dL (0.2-1.2); Calc. Creatinine Clearance 60 mL/min (70-130); Calcium 8.2 mg/dL (7.8-10.44); Carbon Dioxide 24 mmol/L (23-31); Chloride 99 mmol/L (98-107); Estimated GFR-MDRD 44; Globulin 2.9 g/dL (2.4-3.5); Glucose 163 mg/dL (83-110); Magnesium 1.4 mg/dL (1.6-2.6); Potassium 3.2 mmol/L (3.5-5.1); Protein, Total 5.5 g/dL (6.0-8.3); Sodium 132 mmol/L (136-145)
[2019-07-12 06:45] LABS: Band 27 % (5-11); Hemoglobin 10.9 g/dL (12.0-16.0); Lymphocytes 4 % (21-51); MDiff Complete? YES; Mean Corpuscular HGB CONC 32.1 g/dL (32.0-36.0); Mean Corpuscular Hemoglobin 28.1 pg (27.0-31.0); Mean Corpuscular Volume 87.6 fL (78.0-98.0); Mean Platelet Volume 8.6 fL (7.4-10.4); Monocytes 5 % (0-10); Neutrophil 64 % (42-75); Platelet Count 148 thou/uL (130-400); RBC Distribution Width 13.6 % (11.5-14.5); Red Blood Cell (RBC) Count 3.88 mill/uL (4.20-5.40); Toxic Granulation SLIGHT; White Blood Cell (WBC) Count 14.4 thou/uL (4.8-10.8)
[2019-07-12] MEDS ORDERED: Apixaban 5 MG TAB PO SCH (09:00)
[2019-07-12] MEDS: Famotidine 20 MG TAB PO SCH (10:01)
[2019-07-12] MEDS: Apixaban 5 MG TAB PO SCH ×2 (10:01→19:42)
[2019-07-12] MEDS: Saccharomyces boulardii 250 MG CAP PO SCH (10:02)
[2019-07-12] MEDS: MEROPENEM 1 GM/50 ML 1 GM in Premix Bag 1 BAG IVPB SCH ×4 (10:02→19:42)
[2019-07-12] MEDS: Metoprolol Tartrate 25 MG TAB PO SCH ×2 (10:08→19:42)
--- NOTE | 2019-07-12 15:05 | CON ---
DATE OF CONSULTATION: 07/12/2019 REASON FOR CONSULTATION: Bacteremia. HISTORY OF PRESENT ILLNESS: A 73-year-old with history of coronary artery disease with prior stents, atrial fibrillation, type 2 diabetes and hyperlipidemia, who developed nausea and vomiting for the past few days and little bit of pain in the upper abdomen. Although in the history, there is a stated subjective fever report, right now she told me that she did not have a fever, did not have chills either. No headaches, no visual symptoms, sore throat, odynophagia, dysphagia, no dyspnea. No chest pain, no back pain or abdominal pain. No genitourinary symptoms, specifically no dysuria, hematuria, or change in color of urine. No joint symptoms, no skin disorder. PAST MEDICAL HISTORY: Coronary artery disease with prior stenting, type 2 diabetes, hypertension, hyperlipidemia, GERD, atrial fibrillation. PAST SURGICAL HISTORY: Aortic dissection with endograft stent placed. SOCIAL HISTORY: Never smoker. No alcoholic beverages. FAMILY HISTORY: Coronary artery disease, [place]. ALLERGIES: INFLUENZA VACCINE, BACTRIM, LYRICA, COREG. CURRENT MEDICATIONS: 1. Meropenem. 2. Tums. 3. Dulcolax. 4. Eliquis. 5. Tylenol. PHYSICAL EXAMINATION: VITAL SIGNS: T-max 101.5, currently 97.9, blood pressure 113/70, pulse 77, respirations 20, O2 saturation 97%. SKIN: Normal exam of the skin. No lymphadenopathy. HEENT: Noncontributory. NECK: Supple. LUNGS: Symmetric. Clear breath sounds. HEART: S1 and S2, regular rate. No S3 or S4. ABDOMEN: Soft without tenderness. No distention or ascites. No bladder distention. No organomegaly. EXTREMITIES: Moves extremities equally. Pulses 1+ in dorsalis pedis. NEUROLOGIC: Cognitive function appears to be intact. LABORATORY DATA: White cell count 17.5 and 14, hemoglobin 10.9, platelets 148, 27% bands. Sodium 132, creatinine 1.19, alkaline phosphatase 132, albumin 2.6. Urinalysis with greater than 50 wbc's, 11 to 20 rbc's. Microbiology with E coli , 2/2 sets of blood cultures, pending susceptibility results. Abdomen and pelvis CT with evidence of pyelonephritis, right side, but no obstruction. The possibility of a recent passage of a renal stone was discussed, but that is not likely. Chest x-ray, with pacemaker, endograft stent in the ascending aorta. ASSESSMENT: 1. Coronary artery disease with multiple interventions, aortic dissection, managed with stent, pacemaker after ablation. 2. Abnormal urinalysis, evidence of Escherichia coli bacteremia associated with the right-sided kidney stranding in the perinephric area. 3. Multiple devices and prosthetic implants. DISCUSSION: The most likely scenario is an invasive urinary tract infection with pyelonephritis, although the absence of pain is somewhat atypical. In her case , she does have diabetes which sometimes can be associated with neuropathy and lack of proper sensation which can blunt the pain associated with those processes. E coli tends not to adhere to those devices and is less likely cause of endovascular infections. So I think that until proven otherwise, we will treat this as pure UTI with renal involvement. Until we have the susceptibilities back, we will continue meropenem and then hopefully transition to oral quinolone for discharge planning. Total duration of entire therapy around 10 days approximately. Cases of lead colonization by E coli have been described in the literature, but those are infrequent. Certainly, if she has recrudescence of fever and recrudescence of the bacteremia, then we will have to order a DARLEEN and re-evaluate the situation, but that is less likely. Job ID: [id number] [facility] HOSPITALLalita
--- NOTE | 2019-07-12 20:54 | PDOC.HOSPP ---
- Subjective Encounter Date: 07/12/19 Encounter Time: 10:30 Subjective: Patient seen and examined for Sepsis. Feeling better. No dysuria/CP. No new complaints. No overnight events - Objective Vital Signs & Weight: Vital Signs (12 hours) Temp Pulse Resp BP Pulse Ox 07/12/19 19:13 98.7 F 85 16 112/71 97 07/12/19 16:00 98.5 F 80 18 119/67 94 L 07/12/19 11:53 97.9 F 77 20 113/70 97 07/12/19 10:03 107/69 Weight Weight 201 lb Result Diagrams: 07/12/19 05:41 07/12/19 05:41 Radiology Reviewed by me: Yes (CT - pyelonep) Hospitalist ROS - Review of Systems Respiratory: denies: cough, dry, shortness of breath, hemoptysis, SOB with excertion, pleuritic pain, sputum, wheezing, other Cardiovascular: denies: chest pain, palpitations, orthopnea, paroxysmal noc. dyspnea, edema, light headedness, other Gastrointestinal: denies: nausea, vomiting, abdominal pain, diarrhea, constipation, melena, hematochezia, other - Medication Medications: Active Medications Generic Name Dose Route Start Last Admin Trade Name Freq PRN Reason Stop Dose Admin Apixaban 5 mg 07/12/19 09:00 07/12/19 19:42 Eliquis PO 5 mg BID EDIE Administration Famotidine 20 mg 07/12/19 09:00 07/12/19 10:01 Pepcid PO 20 mg DAILY EDIE Administration Sodium Chloride 1,000 mls @ 125 mls/hr 07/11/19 22:00 07/12/19 19:47 Normal Saline 0.9% IV Not Given .Q8H EDIE Meropenem 1 gm/ Device 50 mls @ 400 mls/hr 07/12/19 06:00 07/12/19 19:42 IVPB 50 mls Q8HR EDIE Administration Metoprolol Tartrate 12.5 mg 07/12/19 09:00 07/12/19 19:42 Lopressor PO 12.5 mg BID EDIE Administration Ondansetron HCl 4 mg 07/11/19 21:51 07/12/19 17:32 Zofran IVP 4 mg Q6H PRN Administration Nausea/Vomiting Saccharomyces Boulardii 250 mg 07/12/19 09:00 07/12/19 10:02 Florastor PO 250 mg DAILY EDIE Administration - Exam General Appearance: NAD Neck: no JVD Heart: RRR, no gallops, no rubs, normal peripheral pulses Respiratory: CTAB, no rales, no ronchi, normal chest expansion Gastrointestinal: soft, non-tender, non-distended, normal bowel sounds Extremities: no cyanosis, no clubbing, no edema Skin: no rashes Psychiatric: normal affect, A&O x 3 Hosp A/P - Plan 1. Severe sepsis secondary to right-sided pyelonephritis. 2. Recent aortic aneurysm repair. 3. Recent pacemaker placement. 4. Hyponatremia/hypokalemia/hypomagnesemia 5. Acute kidney injury on chronic kidney disease, stage 3. 6. Metabolic acidosis/lactic acidosis. 7. Diabetes mellitus, type 2. 8. Hypertension. 9. Coronary artery disease. 10. Obesity with a BMI of 34.5. 11. Degenerative joint disease. 12. Paroxysmal atrial fibrillation on anticoagulation PLAN: Cont Meropenem Replace electrolytes Cont IVF Amlodipine/Lisinopril on hold Resume ASA Resume Imdur AM labs Await ID input
[2019-07-12] MEDS ORDERED: Potassium Chloride 20 MEQ TAB PO SCH (21:00)
[2019-07-12] MEDS: Atorvastatin Calcium 40 MG TAB PO SCH (21:11)
[2019-07-12] MEDS ORDERED: Magnesium Sulfate 4 GM in Sodium Chloride 0.9% 250 ML 250 ML IVPB SCH (21:15)
[2019-07-13] MEDS: Sodium Chloride 0.9% 1,000 ML IV SCH ×2 (03:57→11:03)
[2019-07-13] MEDS: MEROPENEM 1 GM/50 ML 1 GM in Premix Bag 1 BAG IVPB SCH (04:49)
[2019-07-13 07:36] LABS: Hemoglobin 10.6 g/dL (12.0-16.0); Mean Corpuscular HGB CONC 33.2 g/dL (32.0-36.0); Mean Corpuscular Hemoglobin 29.4 pg (27.0-31.0); Mean Corpuscular Volume 88.7 fL (78.0-98.0); Mean Platelet Volume 8.9 fL (7.4-10.4); Platelet Count 183 thou/uL (130-400); RBC Distribution Width 13.7 % (11.5-14.5); White Blood Cell (WBC) Count 15.3 thou/uL (4.8-10.8)
[2019-07-13 07:47] LABS: Anion Gap 10 mmol/L (10-20); BUN (Urea Nitrogen) 32 mg/dL (9.8-20.1); Calc. Creatinine Clearance 81 mL/min (70-130); Calcium 8.1 mg/dL (7.8-10.44); Carbon Dioxide 23 mmol/L (23-31); Chloride 105 mmol/L (98-107); Estimated GFR-MDRD 63; Glucose 110 mg/dL (83-110); Potassium 3.5 mmol/L (3.5-5.1); Sodium 134 mmol/L (136-145)
[2019-07-13] MEDS: Metoprolol Tartrate 25 MG TAB PO SCH ×2 (08:21→20:07)
[2019-07-13] MEDS: Saccharomyces boulardii 250 MG CAP PO SCH (08:21)
[2019-07-13] MEDS: Isosorbide Mononitrate (ER) 30 MG TAB PO SCH (08:21)
[2019-07-13] MEDS: Apixaban 5 MG TAB PO SCH ×2 (08:21→20:06)
[2019-07-13] MEDS: Potassium Chloride 20 MEQ TAB PO SCH (08:22)
[2019-07-13] MEDS: Fish Oil 1,000 MG CAP PO SCH (08:22)
[2019-07-13] MEDS: Famotidine 20 MG TAB PO SCH ×2 (08:23→20:07)
[2019-07-13] MEDS: Aspirin Chewable 81 MG TAB PO SCH (08:23)
[2019-07-13 08:38] LABS: Band 25 % (5-11); Dohle Bodies SLIGHT; Lymphocytes 6 % (21-51); MDiff Complete? YES; Monocytes 7 % (0-10); Neutrophil 62 % (42-75); Platelet Morphology Comment Appears Adequate; Polychromasia SLIGHT = 2-3 cells (100X) (0-2/hpf); Toxic Granulation SLIGHT; Vacuoles SLIGHT
[2019-07-13] MEDS: cefTRIAXone\\ROCEPHIN 2 GM in Sodium Chloride 0.9% 100 ML IVPB SCH (11:02)
--- NOTE | 2019-07-13 18:50 | EKG ---
Test Reason : Blood Pressure : / mmHG Vent. Rate : 123 BPM Atrial Rate : 123 BPM P-R Int : 140 ms QRS Dur : 074 ms QT Int : 322 ms P-R-T Axes : 029 -26 059 degrees QTc Int : 460 ms Sinus tachycardia with Premature atrial complexes Inferior infarct , age undetermined Abnormal ECG When compared with ECG of 12-JUN-2019 09:56, Premature atrial complexes are now Present Inferior infarct is now Present Non-specific change in ST segment in Inferior leads ST now depressed in Lateral leads Nonspecific T wave abnormality now evident in Lateral leads Confirmed by DR. Sisi RICHTER ([id number]) on 07/13/2019 6:50:28 PM Referred By: WILIAN Confirmed By:DR. Sisi RICHTER
--- NOTE | 2019-07-13 20:03 | PDOC.HOSPP ---
- Subjective Encounter Date: 07/13/19 Encounter Time: 09:00 Subjective: Patient seen and examined for Sepsis. Feels better. No new complaints. No overnight events - Objective Vital Signs & Weight: Vital Signs (12 hours) Temp Pulse Resp BP BP Pulse Ox 07/13/19 19:43 98.7 F 76 20 150/72 H 96 07/13/19 16:00 98.2 F 70 18 104/56 L 97 07/13/19 11:00 98.1 F 75 16 115/71 95 Weight Weight 201 lb Result Diagrams: 07/13/19 06:59 07/13/19 06:59 Hospitalist ROS - Review of Systems Respiratory: denies: cough, dry, shortness of breath, hemoptysis, SOB with excertion, pleuritic pain, sputum, wheezing, other Cardiovascular: denies: chest pain, palpitations, orthopnea, paroxysmal noc. dyspnea, edema, light headedness, other - Medication Medications: Active Medications Generic Name Dose Route Start Last Admin Trade Name Freq PRN Reason Stop Dose Admin Apixaban 5 mg 07/12/19 09:00 07/13/19 08:21 Eliquis PO 5 mg BID EDIE Administration Aspirin 81 mg 07/13/19 09:00 07/13/19 08:23 Aspirin Chewable PO 81 mg DAILY EDIE Administration Atorvastatin Calcium 40 mg 07/12/19 21:00 07/12/19 21:11 Lipitor PO 40 mg HS EDIE Administration Fish Oil 1,000 mg 07/13/19 09:00 07/13/19 08:22 Fish Oil PO 1,000 mg DAILY EDIE Administration Ceftriaxone Sodium 2 gm/ 100 mls @ 200 mls/hr 07/13/19 11:00 07/13/19 11:02 Sodium Chloride IVPB 100 mls 1100 EDIE Administration Sodium Chloride 1,000 mls @ 75 mls/hr 07/13/19 10:21 07/13/19 11:03 Normal Saline 0.9% IV 1,000 mls .[id number] EDIE Administration Isosorbide Mononitrate 30 mg 07/13/19 09:00 07/13/19 08:21 Imdur Er PO 30 mg DAILY EDIE Administration Metoprolol Tartrate 12.5 mg 07/12/19 09:00 07/13/19 08:21 Lopressor PO 12.5 mg BID EDIE Administration Ondansetron HCl 4 mg 07/11/19 21:51 07/12/19 17:32 Zofran IVP 4 mg Q6H PRN Administration Nausea/Vomiting Potassium Chloride 20 meq 07/13/19 08:00 07/13/19 08:22 K-Dur PO 20 meq QAM-WM EDIE Administration Saccharomyces Boulardii 250 mg 07/12/19 09:00 07/13/19 08:21 Florastor PO 250 mg DAILY EDIE Administration - Exam General Appearance: NAD Heart: RRR, no gallops Respiratory: CTAB, no rales Gastrointestinal: soft, non-tender, normal bowel sounds Extremities: no edema Hosp A/P - Plan 1. Severe sepsis secondary to right-sided pyelonephritis. 2. Recent aortic aneurysm repair. 3. Recent pacemaker placement. 4. Hyponatremia/hypokalemia/hypomagnesemia 5. Acute kidney injury on chronic kidney disease, stage 3. 6. Metabolic acidosis/lactic acidosis. 7. Diabetes mellitus, type 2. 8. Hypertension. 9. Coronary artery disease. 10. Obesity with a BMI of 34.5. 11. Degenerative joint disease. 12. Paroxysmal atrial fibrillation on anticoagulation PLAN: DC Meropenem Start Ceftriaxone Reduce IVF to 75 ml Amlodipine/Lisinopril on hold Cont ASA/Imdur Cont other meds
[2019-07-13] MEDS: Atorvastatin Calcium 40 MG TAB PO SCH (20:06)
[2019-07-14] MEDS: Sodium Chloride 0.9% 1,000 ML IV SCH ×2 (05:07→13:00)
[2019-07-14 06:49] LABS: #Eosinphils 0.2 thou/uL (0.0-0.7); #Monocytes 1.2 thou/uL (0.11-0.59); #Neutrophils 8.5 thou/uL (1.40-6.50); %Eosinophils 1.8 % (0.0-10.0); %Monocytes 11.3 % (0.0-10.0); %Neutrophils 77.8 % (42.0-75.0); Mean Corpuscular HGB CONC 32.7 g/dL (32.0-36.0); Mean Corpuscular Volume 91.6 fL (78.0-98.0); Mean Platelet Volume 8.5 fL (7.4-10.4); Platelet Count 186 thou/uL (130-400); RBC Distribution Width 14.1 % (11.5-14.5); Red Blood Cell (RBC) Count 3.33 mill/uL (4.20-5.40); White Blood Cell (WBC) Count 10.9 thou/uL (4.8-10.8)
[2019-07-14 06:54] LABS: Anion Gap 11 mmol/L (10-20); BUN (Urea Nitrogen) 24 mg/dL (9.8-20.1); Calc. Creatinine Clearance 93 mL/min (70-130); Carbon Dioxide 20 mmol/L (23-31); Chloride 107 mmol/L (98-107); Estimated GFR-MDRD 74; Glucose 92 mg/dL (83-110); Magnesium 1.9 mg/dL (1.6-2.6); Potassium 3.8 mmol/L (3.5-5.1); Sodium 134 mmol/L (136-145)
[2019-07-14] MEDS: Isosorbide Mononitrate (ER) 30 MG TAB PO SCH (12:09)
[2019-07-14] MEDS: Fish Oil 1,000 MG CAP PO SCH (12:09)
[2019-07-14] MEDS: Potassium Chloride 20 MEQ TAB PO SCH (12:09)
[2019-07-14] MEDS: Apixaban 5 MG TAB PO SCH ×2 (12:09→20:02)
[2019-07-14] MEDS: Aspirin Chewable 81 MG TAB PO SCH (12:10)
[2019-07-14] MEDS: Famotidine 20 MG TAB PO SCH ×2 (12:10→20:02)
[2019-07-14] MEDS: Metoprolol Tartrate 25 MG TAB PO SCH ×2 (12:10→20:03)
[2019-07-14] MEDS: Saccharomyces boulardii 250 MG CAP PO SCH (12:10)
[2019-07-14] MEDS: cefTRIAXone\\ROCEPHIN 2 GM in Sodium Chloride 0.9% 100 ML IVPB SCH (12:15)
--- NOTE | 2019-07-14 16:07 | PRG ---
DATE OF SERVICE: 07/14/2019 SUBJECTIVE: Sitting up by the bedside, feeling much better. Less sensation of nausea. Eating well. No diarrhea. No pain. OBJECTIVE: VITAL SIGNS: She has been afebrile since the past 2 days. GENERAL: Awake, alert, and oriented. LUNGS: Clear. HEART: S1 and S2, regular rate. ABDOMEN: Little bit distended, but not tender. EXTREMITIES: Moves all extremities equally. LABORATORY DATA: White cell count 10.9, hemoglobin 10.0, platelets 186. Creatinine is 0.76. E coli with a fairly broad susceptibility profile. ASSESSMENT AND DISCUSSION: Coronary artery disease, aortic dissection, pacemaker, and Escherichia coli bacteremia with pyelonephritis on right side, broad susceptibility profile. We will switch her to quinolone and consider discharge planning. Treat for about 10 days in the outpatient setting. Job ID: [id number]
[2019-07-14] MEDS: Atorvastatin Calcium 40 MG TAB PO SCH (20:02)
--- NOTE | 2019-07-14 21:52 | PDOC.HOSPP ---
- Subjective Encounter Date: 07/14/19 Encounter Time: 12:00 Subjective: Patient seen and examined for Sepsis. No fever/chills. Feeling better. No new complaints. No overnight events - Objective Vital Signs & Weight: Vital Signs (12 hours) Temp Pulse Resp BP BP BP Pulse Ox 07/14/19 21:14 128/61 07/14/19 20:00 98.2 F 74 18 170/80 H 97 07/14/19 15:15 97.9 F 71 16 135/77 97 07/14/19 11:20 97.6 F Weight Weight 201 lb I&O: 07/13/19 07/14/19 07/15/19 06:59 06:59 06:59 Intake Total 1400 1999 Balance 1400 1999 Result Diagrams: 07/14/19 05:58 07/14/19 05:58 Hospitalist ROS - Review of Systems Respiratory: denies: cough, dry, shortness of breath, hemoptysis, SOB with excertion, pleuritic pain, sputum, wheezing, other Cardiovascular: denies: chest pain, palpitations, orthopnea, paroxysmal noc. dyspnea, edema, light headedness, other - Medication Medications: Active Medications Generic Name Dose Route Start Last Admin Trade Name Freq PRN Reason Stop Dose Admin Apixaban 5 mg 07/12/19 09:00 07/14/19 20:02 Eliquis PO 5 mg BID EDIE Administration Aspirin 81 mg 07/13/19 09:00 07/14/19 12:10 Aspirin Chewable PO 81 mg DAILY EDIE Administration Atorvastatin Calcium 40 mg 07/12/19 21:00 07/14/19 20:02 Lipitor PO 40 mg HS EDIE Administration Famotidine 20 mg 07/13/19 21:00 07/14/19 20:02 Pepcid PO 20 mg BID EDIE Administration Fish Oil 1,000 mg 07/13/19 09:00 07/14/19 12:09 Fish Oil PO 1,000 mg DAILY EDIE Administration Isosorbide Mononitrate 30 mg 07/13/19 09:00 07/14/19 12:09 Imdur Er PO 30 mg DAILY EDIE Administration Metoprolol Tartrate 12.5 mg 07/12/19 09:00 07/14/19 20:03 Lopressor PO 12.5 mg BID EDIE Administration Ondansetron HCl 4 mg 07/11/19 21:51 07/12/19 17:32 Zofran IVP 4 mg Q6H PRN Administration Nausea/Vomiting Potassium Chloride 20 meq 07/13/19 08:00 07/14/19 12:09 K-Dur PO 20 meq QAM-WM EDIE Administration Saccharomyces Verenai 250 mg 07/12/19 09:00 07/14/19 12:10 Florastor PO 250 mg DAILY EDIE Administration - Exam General Appearance: NAD Neck: supple, no JVD Heart: RRR, no gallops Respiratory: CTAB, no rales Gastrointestinal: soft, non-tender, normal bowel sounds Extremities: no edema Hosp A/P - Plan DVT proph w/SCDs 1. Severe sepsis secondary to right-sided pyelonephritis. 2. Recent aortic aneurysm repair. 3. Recent pacemaker placement. 4. Hyponatremia/hypokalemia/hypomagnesemia 5. Acute kidney injury on chronic kidney disease, stage 3. 6. Metabolic acidosis/lactic acidosis. 7. Diabetes mellitus, type 2. 8. Hypertension. 9. Coronary artery disease. 10. Obesity with a BMI of 34.5. 11. Degenerative joint disease. 12. Paroxysmal atrial fibrillation on anticoagulation PLAN: Cont Ceftriaxone Change Atbx to PO in AM DC IVF Cont ASA/Imdur Amlodipine/Lisinopril on hold Cont other meds DC in 24 hr if stable
[2019-07-15] MEDS: Famotidine 20 MG TAB PO SCH (08:22)
[2019-07-15] MEDS: Aspirin Chewable 81 MG TAB PO SCH (08:22)
[2019-07-15] MEDS: Metoprolol Tartrate 25 MG TAB PO SCH (08:22)
[2019-07-15] MEDS: Isosorbide Mononitrate (ER) 30 MG TAB PO SCH (08:22)
[2019-07-15] MEDS: Fish Oil 1,000 MG CAP PO SCH (08:22)
[2019-07-15] MEDS: Saccharomyces boulardii 250 MG CAP PO SCH (08:22)
[2019-07-15] MEDS: Potassium Chloride 20 MEQ TAB PO SCH (08:22)
[2019-07-15] MEDS: Apixaban 5 MG TAB PO SCH (08:22)
[2019-07-15] MEDS ORDERED: Lisinopril 20 MG TAB PO SCH (10:45)
[2019-07-15] MEDS ORDERED: Metoprolol Tartrate 25 MG TAB PO SCH (10:45)
[2019-07-15 11:46] VITALS: TEMP 98.2
[2019-07-15 15:08] VITALS: BP 135/77
--- NOTE | 2019-07-15 18:18 | DIS ---
DATE OF ADMISSION: 07/11/2019 DATE OF DISCHARGE: 07/15/2019 DISCHARGE DISPOSITION: Home. FOLLOWUP: 1. Follow up with primary care physician, Dr. Dutch Hess in [address] [facility] Care was resumed. DISCHARGE MEDICATIONS: 1. Levaquin 500 mg daily for next 10 more days. 2. Florastor 250 mg daily for next 3 weeks. 3. All other home medications were left unchanged. The patient was seen on the day of discharge. Denies any new complaints. Symptomatically feels much better. DIAGNOSTIC TESTS: WBC on admission 17.5, yesterday was 10.9. Sodium 134. Lactic acid on admission 3.0. Sodium was 126 on admission. Creatinine on admission 1.35, at discharge 0.76. Urinalysis showed greater than 50 wbc's with 4+ bacteria. Blood and urine culture showed E coli, sensitive to quinolones. CT scan of the abdomen and pelvis was consistent with right-sided pyelonephritis. BRIEF HOSPITAL COURSE: The patient is a 73-year-old female with coronary artery disease, hypertension, and hyperlipidemia, presented to the emergency room with generalized weakness, nausea, vomiting, and fever. Workup was consistent with severe sepsis secondary to right-sided pyelonephritis. Her blood and urine culture were positive for E coli. The patient was also seen by Infectious Disease, Dr. Foss. She has been cleared by Infectious Disease for discharge. She is afebrile for last 2 to 3 days. Her WBC count has improved. She had 27% bandemia initially that has resolved. FINAL DIAGNOSES: 1. Severe sepsis secondary to right-sided pyelonephritis. 2. Escherichia coli bacteremia. 3. Recent aortic aneurysm repair. 4. Recent pacemaker placement. 5. Hyponatremia. 6. Hypokalemia. 7. Cholelithiasis. 8. Acute kidney injury on chronic kidney disease stage 3, resolved. 9. Metabolic acidosis/lactic acidosis on admission. 10. Diabetes mellitus type 2. 11. Hypertension. 12. Coronary artery disease. 13. Obesity with a BMI of 34.5. 14. Degenerative joint disease. 15. Paroxysmal atrial fibrillation, on anticoagulation. PLAN: Plan was discussed with the patient in detail. She stated understanding. Job ID: [id number]
== END 2019-07-15 14:57 | disposition home health service (06) | DRG 872 ==
LOC: ERS 13:08 → T4-B 17:40
PROVIDERS: ADMIT Internal Medicine; ATTEND Internal Medicine
DX: A41.51 Sepsis due to Escherichia coli [E. coli] (principal); N12 Tubulo-interstitial nephritis, not specified as acute or chronic; E87.1 Hypo-osmolality and hyponatremia; N17.9 Acute kidney failure, unspecified; E87.2 Acidosis; R65.20 Severe sepsis without septic shock; B96.20 Unspecified Escherichia coli [E. coli] as the cause of diseases classified elsewhere; E87.6 Hypokalemia; K80.20 Calculus of gallbladder without cholecystitis without obstruction; I12.9 Hypertensive chronic kidney disease with stage 1 through stage 4 chronic kidney disease, or unspecified chronic kidney disease; E83.42 Hypomagnesemia; E11.22 Type 2 diabetes mellitus with diabetic chronic kidney disease; N18.3 Chronic kidney disease, stage 3 (moderate); I25.10 Atherosclerotic heart disease of native coronary artery without angina pectoris; I48.0 Paroxysmal atrial fibrillation; M19.90 Unspecified osteoarthritis, unspecified site; E66.9 Obesity, unspecified; Z68.34 Body mass index [BMI] 34.0-34.9, adult; K21.9 Gastro-esophageal reflux disease without esophagitis; Z86.73 Personal history of transient ischemic attack (TIA), and cerebral infarction without residual deficits; Z98.51 Tubal ligation status; Z96.642 Presence of left artificial hip joint
CPT/HCPCS: 36415; 71045; 74177; 80048; 80053; 81003; 81015; 83605; 83690; 83735; 83930; 84484; 85025; 87040; 87077; 87086; 87149; 87186; 87804; 93005; 93010; 96365; 96366; 96375; J0696; J1580; J2185; J2405; J3370; J3475; J3490; J7050; Q9967

== ENCOUNTER 2023-08-13 12:09 | Outpatient (CLI) | payer MEDICARE, BC | END 2023-08-13 12:10 | disposition home or self-care (01) | LOC: CT 12:09 | PROVIDERS: ATTEND Thoracic Surgery (Cardiothoracic Vascular Surgery) | DX: I71.019 Dissection of thoracic aorta, unspecified (principal); I77.71 Dissection of carotid artery; I08.3 Combined rheumatic disorders of mitral, aortic and tricuspid valves; Z95.828 Presence of other vascular implants and grafts | CPT/HCPCS: 71275; 74174; 82565; 93306 ==

== ENCOUNTER 2025-07-24 18:38 | Inpatient (IN) | payer MEDICARE, BC ==
[2025-07-24 19:15] LABS: #Basophils 0.06 10x3/uL (0.0-0.2); #Eosinophils 0.25 10x3/uL (0.0-0.7); #Monocytes 0.63 10x3/uL (0.11-0.59); #Neutrophils 3.00 10x3/uL (1.40-6.50); %Basophils 1.1 % (0.0-1.0); %Eosinophils 4.7 % (0.0-10.0); %Lymphocytes 25.1 % (21.0-51.0); %Monocytes 11.8 % (0.0-10.0); %Neutrophils 56.4 % (42.0-75.0); Hematocrit 34.0 % (36.0-47.0); Hemoglobin 10.3 g/dL (12.0-16.0); Mean Corpuscular Hemoglobin 22.7 pg (27.0-31.0); Mean Corpuscular Volume 74.9 fL (78.0-98.0); Platelet Count 262 10x3/uL (130-400); Red Blood Cell (RBC) Count 4.54 mill/uL (4.20-5.40); White Blood Cell (WBC) Count 5.33 10x3/uL (4.8-10.8)
[2025-07-24 19:23] LABS: INR-International Normal Ratio 1.2; Prothrombin Time 14.8 sec (12.0-14.7)
[2025-07-24 19:24] LABS: PTT 31.7 sec (22.9-36.1)
[2025-07-24 19:31] LABS: ALT (SGPT) 19 U/L (Less than 34); AST (SGOT) 22 U/L (11-34); Albumin 4.0 g/dL (3.1-4.5); Alkaline Phosphatase 65 U/L (40-110); Anion Gap 13 mmol/L (10-20); BUN (Urea Nitrogen) 18 mg/dL (9.8-20.1); Bilirubin, Total 0.2 mg/dL (0.3-1.2); Calc. Creatinine Clearance 0 mL/min (70-130); Calcium 10.0 mg/dL (7.8-10.44); Carbon Dioxide 27 mmol/L (23-31); Chloride 101 mmol/L (98-107); Globulin 2.9 g/dL (2.4-3.5); Glucose 146 mg/dL (83-110); Potassium 3.5 mmol/L (3.5-5.1); Sodium 137 mmol/L (136-145)
[2025-07-24] MEDS ORDERED: Aspirin Chewable 81 MG TAB ONE (20:36)
[2025-07-24 20:44] LABS: Acetaminophen Less than 10 mcg/mL (Less than 10); Salicylate Less than 8.0 mg/dL (Less than 8.0)
[2025-07-24] MEDS ORDERED: Acetaminophen 325 MG TAB PO PRN (20:47)
[2025-07-24] MEDS ORDERED: hydrALAZINE 20 MG/ML VIAL SLOW IVP PRN (20:47)
[2025-07-24] MEDS ORDERED: Ondansetron PF 4 MG/2 ML Vial IVP PRN (20:47)
[2025-07-24 21:03] LABS: Bacteria/HPF None Seen HPF (None Seen); CAUTI Indications for Culture Alt mental st,lethar; Glucose, Urine (Dipstick) Normal (Negative); Leukocyte Negative Leu/uL (Negative); Protein, Urine (Dipstick) Negative (Neg-Trace); RBC/HPF None Seen HPF (0-3); Specific Gravity, Urine 1.024 (1.002-1.036); WBC/HPF 0-3 HPF (0-3)
[2025-07-24] MEDS ORDERED: Dextrose 50% Abboject 50 ML SYRINGE SLOW IVP PRN (21:10)
[2025-07-24] MEDS ORDERED: Glucagon 1 MG/ML KIT IM PRN (21:10)
[2025-07-24 21:11] LABS: Cocaine Metabolite Screen Negative (Negative); THC/Cannabinoid Screen Negative (Negative); Tricyclic Screen Negative (Negative)
[2025-07-24 21:12] LABS: Urine Culture Reflex No No
[2025-07-24 23:21] VITALS: BMI 33.5
[2025-07-25 04:31] LABS: #Basophils 0.06 10x3/uL (0.0-0.2); #Eosinophils 0.32 10x3/uL (0.0-0.7); #Monocytes 0.68 10x3/uL (0.11-0.59); #Neutrophils 2.79 10x3/uL (1.40-6.50); %Basophils 1.0 % (0.0-1.0); %Eosinophils 5.3 % (0.0-10.0); %Lymphocytes 35.8 % (21.0-51.0); %Monocytes 11.3 % (0.0-10.0); %Neutrophils 46.1 % (42.0-75.0); Hematocrit 31.2 % (36.0-47.0); Hemoglobin 9.1 g/dL (12.0-16.0); Mean Corpuscular Hemoglobin 22.1 pg (27.0-31.0); Mean Corpuscular Volume 75.9 fL (78.0-98.0); Platelet Count 247 10x3/uL (130-400); Red Blood Cell (RBC) Count 4.11 mill/uL (4.20-5.40); White Blood Cell (WBC) Count 6.04 10x3/uL (4.8-10.8)
[2025-07-25 04:42] LABS: Anion Gap 16 mmol/L (10-20); BUN (Urea Nitrogen) 16 mg/dL (9.8-20.1); Calc. Creatinine Clearance 81 mL/min (70-130); Calcium 9.5 mg/dL (7.8-10.44); Carbon Dioxide 22 mmol/L (23-31); Cardiac Risk 2.8 (Less than 4.5); Chloride 105 mmol/L (98-107); Cholesterol 132 mg/dl (< 200 Desired); Glucose 95 mg/dL (83-110); HDL Cholesterol 48 mg/dL (>60 Neg Risk); LDL Cholesterol, Calculated 56 mg/dL; Potassium 3.8 mmol/L (3.5-5.1); Sodium 139 mmol/L (136-145); Triglycerides 138 mg/dL (Less than 150)
[2025-07-25] MEDS: Lisinopril 20 MG TAB PO SCH (08:23)
[2025-07-25] MEDS: CO Q-10 CAPSULE 100 MG PO SCH (08:23)
[2025-07-25] MEDS: Aspirin Chewable 81 MG TAB PO SCH (08:23)
[2025-07-25] MEDS: Pantoprazole 40 MG DR.TAB PO SCH (08:23)
[2025-07-25] MEDS: Apixaban 5 MG TAB PO SCH (08:23)
[2025-07-26 04:43] LABS: #Basophils 0.06 10x3/uL (0.0-0.2); #Eosinophils 0.28 10x3/uL (0.0-0.7); #Monocytes 0.65 10x3/uL (0.11-0.59); #Neutrophils 2.72 10x3/uL (1.40-6.50); %Basophils 1.1 % (0.0-1.0); %Eosinophils 5.1 % (0.0-10.0); %Lymphocytes 31.8 % (21.0-51.0); %Monocytes 11.9 % (0.0-10.0); %Neutrophils 49.7 % (42.0-75.0); Hematocrit 30.6 % (36.0-47.0); Hemoglobin 9.3 g/dL (12.0-16.0); Mean Corpuscular Hemoglobin 22.5 pg (27.0-31.0); Mean Corpuscular Volume 74.1 fL (78.0-98.0); Platelet Count 230 10x3/uL (130-400); Red Blood Cell (RBC) Count 4.13 mill/uL (4.20-5.40); White Blood Cell (WBC) Count 5.47 10x3/uL (4.8-10.8)
[2025-07-26 04:55] LABS: ALT (SGPT) 14 U/L (Less than 34); AST (SGOT) 37 U/L (11-34); Albumin 3.5 g/dL (3.1-4.5); Alkaline Phosphatase 54 U/L (40-110); Anion Gap 13 mmol/L (10-20); BUN (Urea Nitrogen) 16 mg/dL (9.8-20.1); Bilirubin, Total 0.3 mg/dL (0.3-1.2); Calc. Creatinine Clearance 77 mL/min (70-130); Calcium 9.4 mg/dL (7.8-10.44); Carbon Dioxide 24 mmol/L (23-31); Chloride 107 mmol/L (98-107); Globulin 2.6 g/dL (2.4-3.5); Glucose 145 mg/dL (83-110); Magnesium 1.9 mg/dL (1.6-2.6); Potassium 3.8 mmol/L (3.5-5.1); Sodium 140 mmol/L (136-145)
[2025-07-26 11:23] VITALS: BP 136/62; TEMP 97.7
== END 2025-07-26 14:37 | disposition home or self-care (01) | DRG 69 ==
LOC: ERS 18:38 → 2SE 20:47 → OBSVTOIN 07-25 13:40
PROVIDERS: ADMIT Internal Medicine; ATTEND Internal Medicine
DX: G45.9 Transient cerebral ischemic attack, unspecified (principal); I48.0 Paroxysmal atrial fibrillation; I10 Essential (primary) hypertension; I25.10 Atherosclerotic heart disease of native coronary artery without angina pectoris; E11.9 Type 2 diabetes mellitus without complications; E78.5 Hyperlipidemia, unspecified; Z79.899 Other long term (current) drug therapy; Z79.01 Long term (current) use of anticoagulants; Z79.4 Long term (current) use of insulin; Z88.2 Allergy status to sulfonamides; Z88.8 Allergy status to other drugs, medicaments and biological substances
CPT/HCPCS: 36415; 36416; 70450; 70496; 70498; 70551; 76014; 80048; 80053; 80061; 80306; 80307; 81001; 83036; 83735; 85025; 85610; 85730; 93005; 93306; 94760; G0378; J1815